=== PATIENT | male | born 1945 | race Caucasian/White ===

== ENCOUNTER 2021-09-18 07:06 | Inpatient (IN) | payer OTHER, MEDICARE, SELFPAY ==
[2021-09-18] VITALS (14 sets, daily range): BP systolic 170–215; BP diastolic 63–142; PULSE 72–117; RESP 13–23; TEMP 36.1–36.8; O2SAT 91–95; BMI 28.1
--- NOTE | 2021-09-18 07:08 | XRR_ITS ---
PROCEDURE INFORMATION: Exam: XR Chest Exam date and time: 09/18/2021 7:08 AM Age: 75 years old Clinical indication: Patient HX: Generalized weakness, possible stroke. Weakness started Thursday then woke up this morning with limited movement on the RT side. ; Additional info: CVA TECHNIQUE: Imaging protocol: XR of the chest. Views: 1 view. COMPARISON: CR Chest 2 views* [id number] 03/07/2016 5:48 AM FINDINGS: Lungs: No consolidation. Pleural spaces: Unremarkable. No pleural effusion. No pneumothorax. Heart/Mediastinum: No significant cardiomegaly. Bones/joints: No acute finding. XR/XR chest 1V portable [id number] IMPRESSION: No acute cardiopulmonary finding.
--- NOTE | 2021-09-18 07:09 | CTR_ITS ---
PROCEDURE INFORMATION: Exam: CT Head Without Contrast Exam date and time: 09/18/2021 7:09 AM Age: 75 years old Clinical indication: Weakness, extremity; Left; Additional info: Symptoms of acute stroke; Right side weakness TECHNIQUE: Imaging protocol: Computed tomography of the head without contrast. Radiation optimization: All CT scans at this facility use at least one of these dose optimization techniques: automated exposure control; mA and/or kV adjustment per patient size (includes targeted exams where dose is matched to clinical indication); or iterative reconstruction. Other technique: STROKE PROTOCOL was implemented. COMPARISON: CT head wo con* [id number] 03/05/2016 3:33 PM RADIATION DOSE METRICS: Total DLP (mGy-cm): 1785.54 FINDINGS: Brain: There is no acute intracranial hemorrhage. There is lucency in the cerebral white matter, likely microvascular disease although non-specific. No evidence of mass. There is no mass effect or midline shift. Arriola white differentiation is intact. There are no extra-axial fluid collections. Cerebral ventricles: The ventricles and sulci are enlarged, consistent with volume loss / atrophy. No hydrocephalus. Paranasal sinuses: Partially visualized left maxillary sinus retention cyst or polyp. Amount of mucosal thickening in bilateral ethmoid air cells. No air-fluid levels. Mastoid air cells: No significant mastoid effusion. Vasculature: There is vascular calcification. Bones/joints: No acute fracture. Soft tissues: Unremarkable as visualized. CT/CT head wo con* [id number] IMPRESSION: 1. No evidence of acute intracranial abnormality. No evidence of acute infarction, hemorrhage, or mass. 2. Atrophy and microvascular disease. ASSESSMENT: ASPECTS ([place] Stroke Program Early CT Score) is 10.
--- NOTE | 2021-09-18 07:09 | ECG_ITS ---
[facility] Test Date: 2021-09-18 Pat Name: Mukund Mitchell Department: Room: Gender: Male Regulated Program Manager: : 1945 Requested By: Brian Juan Order Number: [id number] Jorge MD: Nash Cavanaugh M.D. Measurements Intervals [place] Rate: 102 P: 70 DC: 164 QRS: 85 QRSD: 144 T: 50 QT: 376 QTc: 492 Interpretive Statements SINUS TACHYCARDIA POSSIBLE LEFT ATRIAL ENLARGEMENT [-0.1mV P-WAVE IN V1/V2] RIGHT BUNDLE BRANCH BLOCK [120+ ms QRS DURATION, UPRIGHT V1, 40+ ms S IN I/aVL/V4/V5/V6] Compared to ECG 03/05/2016 14:42:01 Sinus rhythm no longer present Electronically Signed On 09-18-2021 16:00:33 SMOKE AND FLAME SPECIALIST by Nash Cavanaugh M.D. [id number]
--- NOTE | 2021-09-18 07:14 | PM.SAN ---
Stroke Alert Activation ED Arrival Date: 09/18/21 ED Arrival Time: 07:06 ED Physican at Bedside: 07:10 Other Last Known Well Infomation: Approximately 48 hours ago Stroke Alert Activated by: Dr. Mckoy Stroke Alert Activation Date: 09/18/21 Stroke Alert Activation Time: 07:01 Critical Care Time Critical Care Time: 30 - 74 mins Additional information about critical care time: 35 A&P Assessment and plan (1) CVA (cerebral vascular accident): Admission Status: Acute Plan Admission Coding Level of Care Code Acute Machine Preservative Filler for Sarahg Fwd Diagnoses CVA (cerebral vascular accident) I63.9
[2021-09-18 07:19] LABS: Basophils # 0.1 10^3/uL (0.0-0.1); Basophils % 0.7 %; Eosinophils # 0.4 10^3/uL (0.0-0.8); Eosinophils % 3.3 %; Hematocrit 49.5 % (42.0-52.0); Hemoglobin 16.7 g/dL (11.7-16.6); Lymphocytes # 1.8 10^3/uL (0.8-4.8); Lymphocytes % 16.1 %; Mean Corpuscular HGB Conc 33.7 g/dL (30.0-36.0); Mean Corpuscular Hemoglobin 30.9 pg (28.0-34.0); Mean Corpuscular Volume 91.5 fl (80-94); Mean Platelet Volume 9.7 fL (7.4-10.4); Monocytes # 0.8 10^3/uL (0.2-0.9); Monocytes % 7.7 %; Neutrophils # 7.86 10^3/uL (1.8-7.7); Neutrophils % 71.8 %; Nucleated Red Blood Cells % 0 %; Platelet Count 378 10^3/cmm (130-400); Red Blood Count 5.41 10^6/uL (4.1-5.3); White Blood Count 10.9 10^3/uL (4.0-10.0)
--- NOTE | 2021-09-18 07:19 | ED_ITS ---
HPI - Neuro Symptoms/Deficit General: Chief Complaint: Weakness Stated Complaint: generalized weakness/ possible stroke Time Seen by Provider: 09/18/21 07:08 Source: patient and EMS Mode of arrival: EMS Limitations: no limitations History of Present Illness: Patient reports onset of weakness to his right upper and lower extremity Thursday morning. This is approximately 48 hours ago. Patient states he is unable to use his right hand and right lower leg this morning. He has been unable to take his medication for the past 24 hours due to poor account services manager. Onset (ago): hour(s) (48) Location: right arm and right leg Severity: severe Quality: weak Relieving factors: none Exacerbating factors: none Context: gradual onset Associated symptoms: Deny chest pain, cough, diaphoresis, headache(s), nausea or vomiting Review of Systems Const: Denies: diaphoresis Eyes: Denies: change in vision ENMT: Denies: throat pain Card: Denies: chest pain Resp: Denies: dyspnea or wheezing GI: Denies: abdominal pain, nausea or vomiting : Denies: flank pain Musc: Denies: neck pain or back pain Skin/Breast: Denies: rash or pruritus Neuro: Reports: weakness in extremities; Denies: headache(s) Psych: Denies: anxiety Avinash/Lymph: Denies: enlarged lymph nodes PFS ED PFSH: Medical History Hypertension Social History Smoking and tobacco status: former smoker Supplemental [facility] Information: pt goes to [facility] for care NIH stroke score NIHSS: Level Of Consciousness - 1a: 0 Level Of Consciousness Questions - 1b: Both Correct Level Of Consciousness Commands - 1c: Both Correct Best Gaze - 2: Normal Visual [place] - 3: No Visual Loss Facial Palsy - 4: Minor Paralysis Motor Arm Right - 5: Effort Against [place] Motor Arm Left - 5: No Drift Motor Leg Right - 6: Effort Against [place] Motor Leg Left - 6: No Drift Limb Ataxia - 7: Present In One Limb Sensory - 8: Normal Best Language - 9: No Aphasia Dysarthia - 10: Mild/Moderate Dysarthia Extinction And Inattention - 11: 0 Score: Total Score: 7 Physical Exam Const: COMMON NORMALS: no acute distress, alert and well nourished GENERAL APPEARANCE: cooperative HENMT: COMMON NORMALS: normocephalic and atraumatic HEAD & SCALP: normocephalic and atraumatic FACE & SINUS: normal facial exam Eye: COMMON NORMALS: EOMs intact bilaterally Neck/C-Spine: COMMON NORMALS: full ROM, no lymphadenopathy, supple and no meningeal signs GENERAL: Yes normal visual inspection Lymph: LYMPHATIC: no lymphadenopathy noted Chest: COMMONS NORMALS: normal inspection of the chest and normal palpation of entire chest wall CHEST: No Ecchymosis present and No rash Resp: COMMON NORMALS: normal respiratory effort, No retractions and clear to auscultation bilaterally EFFORT & INSPECTION: No respiratory distress AUSCULTATION: clear to auscultation bilaterally Cardio: COMMON NORMALS: regular rate, regular rhythm and Peripheral pulses 2+ throughout JUGULAR VENOUS DISTENTION: no JVD RATE: regular rate RHYTHM: regular rhythm PERIPHERAL PULSES: Peripheral pulses 2+ throughout GI: COMMON NORMALS: Normal to inspection, nondistended, normoactive bowel sounds present and non-tender : COMMON NORMALS: Yes no CVA tenderness BLADDER/KIDNEY EXAM: Yes no CVA tenderness Back/Pelvis: COMMON NORMALS: no CVA tenderness Extremity: COMMON NORMALS: normal to inspection, full ROM and capillary refill normal Neuro: SANTI COMA SCALE: document GCS findings (Incorrect on year. He states it is 1992) Keller coma scale eye opening: Spontaneous Keller coma scale verbal response: Confused Santi coma scale motor response: Obey commands Keller coma scale total score: 14 SENSORIUM/ORIENTATION: Yes alert MENINGEAL SIGNS: Yes no meningeal signs CRANIAL NERVES: Yes CN VII (facial) (Slight paralysis of left face, sparing forehead) DEEP TENDON REFLEXES: Right patellar reflex intensity grade: 2+ and Left patellar reflex intensity grade: 2+ OTHER: Speech slightly slurred; 3 out of 5 strength in the right upper and lower extremity. Normal strength in the left upper and lower extremity. Follows commands well. Psych: COMMON NORMALS: mental status grossly normal and Normal thought process present THOUGHT PROCESS: Normal thought process present Skin: COMMON NORMALS: no rashes or lesions noted and no wounds GENERAL SKIN EXAM: no rashes or lesions noted Course Vital Signs: Vital signs: Vital Signs Temperature 97.0 F L 09/18/21 07:26 Pulse Rate 77 09/18/21 09:15 Respiratory Rate 20 H 09/18/21 09:15 Blood Pressure 179/104 09/18/21 09:15 Pulse Oximetry 95 09/18/21 09:15 MDM - Neuro Symptoms/Deficit Medical Decision Making Likely CVA. CT of the brain shows no acute CVA. Lab Data I reviewed the patient's lab results. : 09/18/21 06:55 09/18/21 06:55 Radiology Impressions Chest X-Ray 09/18/21 07:08 IMPRESSION: No acute cardiopulmonary finding. Head CT 09/18/21 07:09 IMPRESSION: 1. No evidence of acute intracranial abnormality. No evidence of acute infarction, hemorrhage, or mass. 2. Atrophy and microvascular disease. ASSESSMENT: ASPECTS ([place] Stroke Program Early CT Score) is 10. Laboratory Results WBC 10.9 10^3/uL (4.0-10.0) H 09/18/21 06:55 RBC 5.41 10^6/uL (4.1-5.3) H 09/18/21 06:55 Hgb 16.7 g/dL (11.7-16.6) H 09/18/21 06:55 Hct 49.5 % (42.0-52.0) 09/18/21 06:55 MCV 91.5 fl (80-94) 09/18/21 06:55 MCH 30.9 pg (28.0-34.0) 09/18/21 06:55 MCHC 33.7 g/dL (30.0-36.0) 09/18/21 06:55 RDW 12.0 % (12.1-15.1) L 09/18/21 06:55 Plt Count 378 10^3/cmm (130-400) 09/18/21 06:55 MPV 9.7 fL (7.4-10.4) 09/18/21 06:55 Neut % (Auto) 71.8 % 09/18/21 06:55 Lymph % (Auto) 16.1 % 09/18/21 06:55 Callahan % (Auto) 7.7 % 09/18/21 06:55 Eos % (Auto) 3.3 % 09/18/21 06:55 Baso % (Auto) 0.7 % 09/18/21 06:55 Neut # (Auto) 7.86 10^3/uL (1.8-7.7) H 09/18/21 06:55 Lymph # (Auto) 1.8 10^3/uL (0.8-4.8) 09/18/21 06:55 Callahan # (Auto) 0.8 10^3/uL (0.2-0.9) 09/18/21 06:55 Eos # (Auto) 0.4 10^3/uL (0.0-0.8) 09/18/21 06:55 Baso # (Auto) 0.1 10^3/uL (0.0-0.1) 09/18/21 06:55 Nucleated RBC % (auto) 0 % 09/18/21 06:55 Nucleated RBCs # 0.0 /100WBC 09/18/21 06:55 PT 13.30 SECONDS (12.1-14.9) 09/18/21 06:55 INR 0.98 (0.8-1.2) 09/18/21 06:55 APTT 38.3 SECONDS (23.9-36.7) H 09/18/21 06:55 Sodium 132 mmol/L (136-145) L 09/18/21 06:55 Potassium 4.2 mmol/L (3.5-5.1) 09/18/21 06:55 Chloride 95 mmol/L (98-107) L 09/18/21 06:55 Carbon Dioxide 20 mmol/L (22-29) L 09/18/21 06:55 Anion Gap 21.2 (5-19) H 09/18/21 06:55 BUN 9 mg/dL (8-23) 09/18/21 06:55 Creatinine 0.7 mg/dL (0.7-1.2) 09/18/21 06:55 GFR Calculation Not Reportable 09/18/21 06:55 Glucose 140 mg/dL (65-115) H 09/18/21 06:55 POC Glucose 97 mg/dL (70-110) 09/18/21 08:11 Calculated Osmolality 275 mOsm/kg (285-295) L 09/18/21 06:55 Calcium 8.9 mg/dL (8.5-10.5) 09/18/21 06:55 Total Bilirubin 0.8 mg/dL (0.15-1.2) 09/18/21 06:55 AST 20 U/L (0-40) 09/18/21 06:55 ALT 16 U/L (0-41) 09/18/21 06:55 Alkaline Phosphatase 75 IU/L (40-130) 09/18/21 06:55 Total Protein 7.3 g/dL (6.6-8.7) 09/18/21 06:55 Albumin 4.8 g/dL (3.5-5.2) 09/18/21 06:55 Globulin 2.5 g/dL (1.3-4.6) 09/18/21 06:[address] Head: Radiologist's impression: Exam: CT Head Without Contrast Exam date and time: 09/18/2021 7:09 AM Age: 75 years old Clinical indication: Weakness, extremity; Left; Additional info: Symptoms of acute stroke; Right side weakness TECHNIQUE: Imaging protocol: Computed tomography of the head without contrast. Radiation optimization: All CT scans at this facility use at least one of these dose optimization techniques: automated exposure control; mA and/or kV adjustment per patient size (includes targeted exams where dose is matched to clinical indication); or iterative reconstruction. Other technique: STROKE PROTOCOL was implemented. COMPARISON: CT head wo con* [id number] 03/05/2016 3:33 PM RADIATION DOSE METRICS: Total DLP (mGy-cm): 1785.54 FINDINGS: Brain: There is no acute intracranial hemorrhage. There is lucency in the cerebral white matter, likely microvascular disease although non-specific. No evidence of mass. There is no mass effect or midline shift. Arriola white differentiation is intact. There are no extra-axial fluid collections. Cerebral ventricles: The ventricles and sulci are enlarged, consistent with volume loss / atrophy. No hydrocephalus. Paranasal sinuses: Partially visualized left maxillary sinus retention cyst or polyp. Amount of mucosal thickening in bilateral ethmoid air cells. No air-fluid levels. Mastoid air cells:? No significant mastoid effusion. Vasculature: There is vascular calcification. Bones/joints:? No acute fracture. Soft tissues: Unremarkable as visualized. CT/CT head wo con* [id number] IMPRESSION: 1. No evidence of acute intracranial abnormality. No evidence of acute infarction, hemorrhage, or mass. 2. Atrophy and microvascular disease. ? ASSESSMENT: ASPECTS ([place] Stroke Program Early CT Score) is 10. ? Dictated By: Ashley Huang MD Signed By: Ashley Huang MD Signed Date/Time: 09/18/21 0741 CXR: I personally reviewed and interpreted this imaging study as follows: My impression: Nothing acute seen. Radiologist's impression: Exam: XR Chest Exam date and time: 09/18/2021 7:08 AM Age: 75 years old Clinical indication: Patient HX: Generalized weakness, possible stroke. Weakness started Thursday then woke up this morning with limited movement on the RT side. ; Additional info: CVA TECHNIQUE: Imaging protocol: XR of the chest. Views: 1 view. COMPARISON: CR Chest 2 views* [id number] 03/07/2016 5:48 AM FINDINGS: Lungs: No consolidation. Pleural spaces: Unremarkable. No pleural effusion. No pneumothorax. Heart/Mediastinum: No significant cardiomegaly. Bones/joints: No acute finding. XR/XR chest 1V portable [id number] IMPRESSION: No acute cardiopulmonary finding. ? Dictated By: Ashley Huang MD Signed By: Ashley Huang MD Signed Date/Time: 09/18/21 0746 EKG Data EKG 1: I personally reviewed and interpreted this EKG as follows: EKG interpretation date: 09/18/21 EKG interpretation time: 08:06 Prior EKG tracings: not available for review Interpretation: EKG shows sinus tachycardia with heart rate of 102. Right axis, right bundle branch block, normal P waves, normal OH interval, normal QT interval. Nonspecific ST-T changes throughout. Critical Care Time Critical Care Time: Critical Care Time: Yes Total Critical Care Time: 35 Attestation: Be admittedcva care; CT angiogram of the head and neck were canceled due to iodine allergies. 0753: Discussed with hospitalist Dr. Ferrer. To med telemetry floor. 0757: Patient was able to drink a cup of water without any difficulty. He passed his dysphagia screen. Discharge Plan Discharge Patient Disposition: Admitted As Inpatient Clinical Impression: CVA (cerebral vascular accident), Hypertensive urgency Condition: Stable Coding Level of Care Code ED Fpga Engineer for g Fwd Exam Comprehensive
[2021-09-18 07:31] LABS: INR 0.98 (0.8-1.2)
[2021-09-18 07:32] LABS: Partial Thromboplastin Time 38.3 SECONDS (23.9-36.7)
[2021-09-18 07:36] LABS: Alanine Aminotransferase 16 U/L (0-41); Albumin Level 4.8 g/dL (3.5-5.2); Alkaline Phosphatase 75 IU/L (40-130); Anion Gap 21.2 (5-19); Aspartate Amino Transferase 20 U/L (0-40); Blood Urea Nitrogen 9 mg/dL (8-23); Calcium 8.9 mg/dL (8.5-10.5); Carbon Dioxide 20 mmol/L (22-29); Chloride 95 mmol/L (98-107); Globulin 2.5 g/dL (1.3-4.6); Glucose 140 mg/dL (65-115); Osmolality Calculated 275 mOsm/kg (285-295); Potassium 4.2 mmol/L (3.5-5.1); Sodium 132 mmol/L (136-145); Total Bilirubin 0.8 mg/dL (0.15-1.2); Total Protein 7.3 g/dL (6.6-8.7)
[2021-09-18] MEDS: aspirin 325 mg Tablet PO (08:04)
[2021-09-18 08:14] LABS: Glucose Point of Care 97 mg/dL (70-110)
[2021-09-18] MEDS: labetalol 5 mg/mL SDV 20mL 10 MG IVP (08:46)
--- NOTE | 2021-09-18 09:21 | PC.PHAR ---
pt states he takes care of his own medications-medications entered are meds that [place] [facility] and what the pt states he takes
--- NOTE | 2021-09-18 09:42 | P.HP_ITS ---
Providers/Chief Complaint Primary Care Provider: Ginette Ji MD Chief Complaint: generalized weakness/ possible stroke History of Present Illness Mukund Mitchell is a 75 year old male who presents today for a 3 days history of right upper and lower extremity weakness. Patient explains that he got up out of his recliner and was unable to stand due to weakness and fell to the floor. He explains that he was on the ground for about 30 minutes before a friend came and helped him him up. He was unable to explain why he presented to the emergency room today and not on Thursday. Denies any nausea vomiting and fevers or chills. Denies any dysphagia or dysarthria. He has not had any drooling. Denies any syncopal episodes, denies any chest pain or heart palpitations. No prior history of CVA. He received aspirin and a dose of labetalol in the emergency department. Review of Systems 2 General: Reports: 10 or more systems reviewed and unremarkable except in HPI and below Const: Denies: fever(s) or chills Eyes: Denies: change in vision or blurry vision ENMT: Denies: odynophagia (or dysphagia) Card: Denies: chest pain, palpitations or irregular heart rhythm Resp: Denies: dyspnea GI: Denies: abdominal pain, nausea or vomiting : Denies: flank pain, difficulty urinating, urinary frequency, oliguria or hematuria Musc: Reports: extremity pain and muscle weakness Skin/Breast: Denies: rash Neuro: Reports: weakness in extremities; Denies: headache(s) Psych: Denies: change in appetite Endo: Denies: polyuria or flushing Avinash/Lymph: Denies: easy bruising All/Imm: Denies: urticaria or facial swelling Medications/Allergies Home Medications Medication Instructions Recorded Confirmed Last Taken Type ketoconazole 2 % shampoo 1 applic TOPICAL .2 x weekly #120 04/30/21 09/18/21 Unknown Rx ml amlodipine 5 mg tablet 5 mg PO DAILY 09/18/21 09/18/21 Unknown History clobetasol 0.05 % topical ointment See Rx Instructions .ROUTE .COMPLEX 09/18/21 09/18/21 Unknown History finasteride 5 mg tablet (Proscar) 5 mg PO BEDTIME 09/18/21 09/18/21 Unknown History ipratropium 20 mcg-albuterol 100 1 puff INHALATION QID PRN 09/18/21 09/18/21 Unknown History mcg/actuation mist for inhalation ketoconazole 2 % topical cream See Rx Instructions .ROUTE .COMPLEX 09/18/21 09/18/21 Unknown History lisinopril 40 mg tablet 40 mg PO DAILY 09/18/21 09/18/21 Unknown History multivitamin 1 tab PO DAILY 09/18/21 09/18/21 Unknown History tamsulosin 0.4 mg capsule (Flomax) 0.4 mg PO BEDTIME 09/18/21 09/18/21 Unknown History triamcinolone acetonide 0.1 % See Rx Instructions .ROUTE .COMPLEX 09/18/21 09/18/21 Unknown History topical ointment Allergies Allergy/AdvReac Type Severity Reaction Status Date / Time Iodine and Iodide Containing Allergy hives Verified 05/07/21 08:22 Produc PFSH Acute PFSH: Medical History (Updated 09/18/21 @ 10:07 by Philip Ferrer MD) BPH (benign prostatic hyperplasia) COPD (chronic obstructive pulmonary disease) Gastric ulcer Hypertension Surgical History (Updated 09/18/21 @ 09:51 by Philip Ferrer MD) History of abdominal surgery Family History (Updated 09/18/21 @ 09:56 by Philip Ferrer MD) Other CAD (coronary artery disease) Social History (Updated 09/18/21 @ 09:55 by Philip Ferrer MD) Smoking and tobacco status: former smoker Alcohol intake: current Alcohol intake frequency: 3 or more drinks per day Vitals/I&O/Wt Last Vital Signs Temp 97.0 F L 09/18/21 07:26 Pulse 77 09/18/21 09:15 Resp 20 H 09/18/21 09:15 BP 179/104 09/18/21 09:15 Pulse Ox 95 09/18/21 09:15 Weight last 48 hrs Weight 81.647 kg Physical Exam Narrative: General: Vela, male lying in bed with no apparent distress. Mild retractions HEENT: Normocephalic atraumatic pupils equal round reactive to light. Neck supple nontender no lymphadenopathy no thyromegaly. Cardiac: Tachycardic, regular rhythm. S1-S2 present. No murmurs rubs or gallops. Peripheral pulses 1+. Respiratory: End expiratory wheezing in all lobes. No rales or rhonchi. Abdomen is soft nontender positive bowel sounds. No obvious organomegaly. Midline scar is noted. exam is deferred Extremities no cyanosis clubbing or edema, cap refill brisk Skin no rash Neuro: Right hemiparesis, dense noted. No facial droop. Bedside swallow exam without any obvious aspiration. Data : 09/18/21 06:55 09/18/21 06:55 Other Labs: INR is normal LFTs normal Chest x-ray COPD changes, calcification aortic notch. 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 Bedside swallow done by me no obvious aspiration Speech therapy physical therapy and Occupational Therapy consultations Initiate aspirin and Plavix It has been 48 hours since his event. At this point can restart some of his blood pressure medicine at low-dose, as permissive hypertension timeframe has past Echocardiogram, carotid duplex Telemetry Initiate high potency statin Hydration Status: Acute Qualifiers: CVA mechanism: unspecified Qualified Code(s): I63.9 - Cerebral infar ction, unspecified (2) Hyperglycemia: Check hemoglobin A1c Status: Acute (3) Hypertension: Initiate his lisinopril at 20 mg daily Status: Acute (4) COPD (chronic obstructive pulmonary disease): DuoNeb every 6 hours, budesonide Status: Acute Plan History of alcohol use. Initiate thiamine. Monitor for withdrawal. He reports he has not drank since Thursday. Tobacco dependency. Encourage abstinence Multiple other medical problems as outlined in past medical history Full code Lovenox for DVT prophylaxis Attestations Medical Necessity Statement*: Will require greater than 2 midnight stay secondary to CVA with dense right hemiparesis unable to care for himself at home. Coding Level of Care Code Acute Gambling Box Person for [facility] Diagnoses CVA (cerebral vascular accident) I63.9 CVA mechanism: unspecified Hyperglycemia R73.9 Hypertension I10 COPD (chronic obstructive pulmonary disease) J44.9
[2021-09-18 10:39] LABS: Creatine Phosphokinase 104 U/L (39-308); Estmated Average Glucose 100; Hemoglobin A1C 5.1 % (4.0-6.0); Thyroid Stimulating Hormone 1.53 uIU/mL (0.27-4.20)
--- NOTE | 2021-09-18 13:27 | PC.NURSE ---
REPORT TO OCTOBER,RN
--- NOTE | 2021-09-18 14:04 | PC.NURSE ---
Patient arrived to floor via cart. Patient is AAOx4, flaccid to right side, and no c/o pain. Skin on back has some abrasions and some blanchable redness to the coccyx area. IV intact and patent.
[2021-09-18] MEDS: ipratropium-albuterol 3 mL Neb INHALATION ×2 (15:20→20:30)
[2021-09-18] MEDS: lisinopril 20 mg Tablet PO (16:01)
[2021-09-18] MEDS: sodium chloride 0.9% 1,000 ML 75 ML IV (16:10)
[2021-09-18] MEDS: enoxaparin 40 mg/0.4 mL Syringe SUBCUT (16:38)
[2021-09-18 17:49] LABS: Glucose Point of Care 113 mg/dL (70-110)
[2021-09-18] MEDS: atorvastatin 40 mg Tablet PO (20:21)
[2021-09-18] MEDS: finasteride 5 mg Tablet PO (20:21)
[2021-09-18] MEDS: tamsulosin 0.4 mg Capsule PO (20:21)
[2021-09-18] MEDS: budesonide 0.5 mg/2 mL Neb INHALATION (20:29)
[2021-09-18 20:35] LABS: Glucose Point of Care 105 mg/dL (70-110)
[2021-09-19] VITALS (14 sets, daily range): BP systolic 165–179; BP diastolic 74–83; PULSE 70–109; RESP 14–26; TEMP 36.7–37; O2SAT 91–95
--- NOTE | 2021-09-19 02:12 | PC.NURSE ---
0015 Awake, restless. nectar thick water given per pt request. Tolerates well.
--- NOTE | 2021-09-19 02:14 | PC.NURSE ---
0200 Awake in bed. COnfused at times. Thinks whiteboard is a tv and wants it turned off. Explained and reoriented pt.
[2021-09-19] MEDS: ipratropium-albuterol 3 mL Neb INHALATION ×4 (02:32→19:59)
--- NOTE | 2021-09-19 02:55 | PC.NURSE ---
0240 US tech at bedside. Pt refuses bedside tests as ordered.
[2021-09-19] MEDS: sodium chloride 0.9% 1,000 ML 75 ML IV (05:06)
[2021-09-19 06:06] LABS: Chol HDL Ratio 2.64 mg/dL (1.0-5.00); Cholesterol 161 mg/dL (0-200); HDL Cholesterol 61 mg/dL (60-100); LDL Cholesterol Calculated 84 mg/dL (50-129); LDL HDL Ratio 1.38 RATIO (0.00-3.22); Triglycerides 79 mg/dL (0-150)
[2021-09-19 06:19] LABS: Glucose Point of Care 113 mg/dL (70-110)
--- NOTE | 2021-09-19 07:48 | P.PN_ITS ---
Documented by User: JAKI Mckeon STDCOREY 09/19/21 08:56 Subjective Subjective: Mukund Mitchell is a 75 year old male being followed for ischemic cerebrovascular accident. Patient explains that he slept good. Was unable to explain if he had received any physical or occupational therapy, states that he is just too stiff. Denies most symptoms of alcohol withdrawal including palpitation, tachycardia, and nausea/vomitting. Endorses decreased appetite. Patient was wondering when he would return to his apartment, explained that he would need a high level of care due to right hemiparesis. Vitals/I&O/Wt Last Vital Signs Temp 98.4 F 09/19/21 07:01 Pulse 91 09/19/21 07:01 Resp 17 09/19/21 07:01 BP 179/83 09/19/21 07:01 Pulse Ox 91 09/19/21 07:01 09/18/21 09/19/21 09/19/21 22:59 06:59 14:59 Intake Total 40 / 40 970 / 1010 Output Total 160 / 160 Balance 40 / 40 810 / 850 Weight last 48 hrs Weight 81.647 kg Physical Exam Narrative: General: Elderly apparing male in no apparent distress. HEENT: Normocephalic, atraumatic. Pupils equal and round. Oropharynx dry. Cardiac: Regular rate and rhythm. S1 S2 present. No murmurs rubs or gallops. Peripheral pulse 2+. Respiratory: Air entry equal bilaterally. Diffuse wheezing present, rhonchi present. No rales. Abdominal retractions present but improved, denies any dyspnea. GI: Soft, nontender, nondistended, normoactive, no organomegaly. Extremities: No cyanosis, clubbing, or edema. Neuro: Dense right sided hemiparesis. Parasthesias on right upper and lower extremity. No facial droop present. Sensation intact over bilateral face. Data : 09/18/21 06:55 09/18/21 06:55 Other Labs: Lipid panel normal A&P Assessment and plan (1) CVA (cerebral vascular accident): Left hemispheric CVA, MCA territory manifested by dense right hemiparesis. Continue speech, physical, and occupational therapy Repeat swallow studies before progression of diet Decrease rate of IV fluids due to adequate liquid oral itnake Continue aspirin and Plavix Continue lisinopril for bloop pressure control Echocardiogram, carotid duplex still pending Continue Telemetry Continue lipitor Hydration Status: Acute Qualifiers: CVA mechanism: unspecified Qualified Code(s): I63.9 - Cerebral infarction, unspecified (2) Hyperglycemia: Hemoglobin A1c normal at 5.1 Status: Acute (3) Hypertension: Continue lisinopril at 20 mg daily Status: Acute (4) COPD (chronic obstructive pulmonary disease): Continue DuoNeb every 6 hours Continue budesonide BID Status: Acute Plan History of alcohol use, continue thiamine. Continue to monitor for withdrawal, no symptoms present at this time. He reports he has not drank since Thursday. Tobacco dependency, encourage abstinence Multiple other medical problems as outlined in past medical history Full code Lovenox for DVT prophylaxis Coding Level of Care Code Acute Mental Retardation Nurse for Chg Fwd Diagnoses CVA (cerebral vascular accident) I63.9 CVA mechanism: unspecified Hyperglycemia R73.9 Hypertension I10 COPD (chronic obstructive pulmonary disease) J44.9 Documented by User: Philip Ferrer MD 09/19/21 09:07 Subjective Subjective: Mukund Mitchell is a 75 year old male being followed for ischemic cerebrovascular accident. Patient explains that he slept good. Was unable to explain if he had received any physical or occupational therapy, states that he is just too stiff. Denies most symptoms of alcohol withdrawal including palpitation, tachycardia, and nausea/vomitting. Endorses decreased appetite. Patient was wondering when he would return to his apartment, explained that he would need a high level of care due to right hemiparesis. Agree with above. I interviewed the patient as well. Medications: Reviewed: Yes Physical Exam Narrative: General: Elderly apparing male in no apparent distress. HEENT: Normocephalic, atraumatic. Pupils equal and round. Oropharynx dry. Cardiac: Regular rate and rhythm. S1 S2 present. No murmurs rubs or gallops. Peripheral pulse 2+. Respiratory: Air entry equal bilaterally. Diffuse wheezing present, rhonchi present. No rales. Abdominal retractions present but improved, denies any dyspnea. GI: Soft, nontender, nondistended, normoactive, no organomegaly. Extremities: No cyanosis, clubbing, or edema. Neuro: Dense right sided hemiparesis. Parasthesias on right upper and lower extremity. No facial droop present. Sensation intact over bilateral face. No changes from above, I examined the patient as well. Data : 09/18/21 06:55 09/18/21 06:55 A&P Assessment and plan (1) CVA (cerebral vascular accident): Left hemispheric CVA, MCA territory manifested by dense right hemiparesis. Continue speech, physical, and occupational therapy Repeat swallow studies before progression of diet Decrease rate of IV fluids due to adequate liquid oral itnake Continue aspirin and Plavix Continue lisinopril for bloop pressure control Echocardiogram, carotid duplex still pending. For some reason order got canceled and I have reordered. Continue Telemetry Continue lipitor Hydration Status: Acute Qualifiers: CVA mechanism: unspecified Qualified Code(s): I63.9 - Cerebral infarction, unspecified (2) Hyperglycemia: Status: Acute (3) Hypertension: Increase lisinopril to his home dose of 40 mg daily Status: Acute (4) COPD (chronic obstructive pulmonary disease): Status: Acute Attestations Medical Necessity Statement*: Needs continued hospitalization for close monitoring following severe stroke, and will need skilled care on discharge. Coding Level of Care Code Acute Mental Retardation Nurse for Chg Fwd Diagnoses CVA (cerebral vascular accident) I63.9 CVA mechanism: unspecified Hyperglycemia R73.9 Hypertension I10 COPD (chronic obstructive pulmonary disease) J44.9
[2021-09-19] MEDS: budesonide 0.5 mg/2 mL Neb INHALATION ×2 (08:03→19:55)
[2021-09-19] MEDS: aspirin 81 mg EC Tablet PO (08:23)
[2021-09-19] MEDS: clopidogrel 75 mg Tablet PO (08:23)
[2021-09-19] MEDS: lisinopril 20 mg Tablet PO (08:23)
[2021-09-19] MEDS: thiamine 100 mg Tablet PO (08:23)
--- NOTE | 2021-09-19 09:03 | USCV_ITS ---
Mukund Mitchell Age: 75 Gender: M : 1945 Exam Date: 09/19/2021 09:15 Ordering Phys: Philip Ferrer MD Technologist: ILSA [place] [facility]: cva Risk Factors: Previous Vascular Surgery: Right Brachial BP: / Left Brachial BP: / Right Left Velocity (cm/s) Spectral Plaque Velocity (cm/s) Spectral Plaque Syst/Diast Broadening Syst/Diast Broadening 155.50/11.00 Prox CCA 92.60 / 18.70 108.10/15.40 Mid CCA 113.60/ 8.80 92.10/ 15.80 Distal CCA 92.60 / 11.00 95.90/ 8.80 Prox ICA 62.80 / 17.60 109.20/9.90 Mid ICA 70.60 / 13.50 72.80/ 17.60 Distal ICA 83.30 / 13.50 87.10 ECA 131.20 0.70 ICA/CCA 0.73 Not Vertebral Antegrade Visualized / cm/s 93.70/ 24.30 cm/s Tri Subclavian Tri 68.40 178.8 0 CONCLUSIONS Right ICA stenosis <50%. Mild calcified atheromatous plaque right carotid bulb/ICA. Left ICA stenosis <50%. Mild calcified atheromatous plaque left carotid bulb/ICA. Right vertebral artery not visualized. Normal antegrade Doppler flow noted in the left vertebral artery. Casper Bryson MD (Electronically Signed) Final Date: 19 September 2021 16:02 S
--- NOTE | 2021-09-19 09:03 | USCV_ITS ---
Paula Mukund Age: 75 Gender: M : 1945 Exam Date: 09/19/2021 13:04 Ordering Phys: Philip Ferrer MD Technologist: Semaj Galvin Exam Location: [facility] [place] Indication: cva BP: 179 / 83 HR: Rhythm: Sinus Technical Quality: MEASUREMENTS (Male / Female) Normal Values FINDINGS Left Ventricle Right Ventricle Right Atrium Left Atrium Mitral Valve Aortic Valve Tricuspid Valve Pulmonic Valve Pericardium Aorta CONCLUSIONS Technically very limited quality echocardiogram. Cardiac structures are not well visualized LV systolic function can not be assessed accurately but grossly appears to be normal. Valvular structures are not visualized For better assessment, consider echo with contrast Comparison with prior echocardiogram is not possible because of poor ultrasonic windows Nash Cavanaugh MD (Electronically Signed) Final Date: 21 September 2021 23:23 S
--- NOTE | 2021-09-19 11:10 | PC.CHAP ---
Pastoral Care Encounter/Spiritual Assessment Type of Contact [] Declined grab setter visit [] Patient/Family/Request visit [] Outpatient visit [] Follow-up visit [] Physician referral [] Code/Alert [x] Routine visit [] Staff referral [] Actively dying [] Patient sleeping [] Family support [] [] Out of room [] Palliative care [] [x] Receiving care in room [] Pre-surgical visit [] Trauma [] Long length of stay [] ICU visit [] Other: Relational/Emotional Strength [x] Patient feels connected with others/family/visitors/staff [] Distress [] Loneliness/isolation [] Abandonment Spirituality of Patient [x] Person of Crys [] Attends Muslim of their Crys [x] Believes in Prayer [] Reads Bible or Advent materials [] There are Spiritual issues to be addressed Bottom Cementer Interventions [x] Prayer [x] Active listening [x] Non-anxious presence [x] Spiritual/emotional support [] Crisis/trauma care [x] Spiritual counseling [] Bereavement support [] Provided bereavement packet [] Provided Bible/devotional materials [] Provided toy/stuffed animal, coloring book to patient or family member [] Provided Communion [] Anointing/[place] [] Salvation [x] Completed spiritual assessment [] Other: Impact on Illness or Injury [] Angry [] Fearful [x] Anxious [] Often cries [] Exhaustion [] Unable to work [] Unable to attend taoist [] Unable to walk/stand [] Unable to read [] Unable to drive [] Unable to eat/drink [] Unable to sleep [] Unable to be with family [] Patient intubated [] Other: Summary Seniur Low sodom waiting on doctor report not sure about what needs to be donr will get to go hpme soon has a good attitude Time spent with patient 10 mins
[2021-09-19 11:55] LABS: Glucose Point of Care 421 mg/dL (70-110)
[2021-09-19 12:21] LABS: Glucose Point of Care 121 mg/dL (70-110)
[2021-09-19] MEDS: enoxaparin 40 mg/0.4 mL Syringe SUBCUT (16:09)
[2021-09-19 17:09] LABS: Glucose Point of Care 138 mg/dL (70-110)
[2021-09-19] MEDS: nicotine 21 mg Patch 1 PATCH TRANSDERMA (17:56)
[2021-09-19 20:35] LABS: Glucose Point of Care 106 mg/dL (70-110)
[2021-09-19] MEDS: atorvastatin 40 mg Tablet PO (20:39)
[2021-09-19] MEDS: finasteride 5 mg Tablet PO (20:39)
[2021-09-19] MEDS: tamsulosin 0.4 mg Capsule PO (20:39)
[2021-09-20] VITALS (18 sets, daily range): BP systolic 139–192; BP diastolic 74–118; PULSE 80–113; RESP 16–24; TEMP 36.3–37.1; O2SAT 92–97
[2021-09-20] MEDS: ipratropium-albuterol 3 mL Neb INHALATION ×3 (03:03→21:15)
--- NOTE | 2021-09-20 04:14 | PC.NURSE ---
0400 Pt awake in bed. Pulled IV out and telemetry off. Attempted to restart IV and replace tlemetry. Pt says No, I don't want it. Explained rationale for these items. Pt says he doesn't care.
--- NOTE | 2021-09-20 04:48 | PC.NURSE ---
0415 Pt refused lab to draw blood.
[2021-09-20 06:40] LABS: Glucose Point of Care 115 mg/dL (70-110)
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
--- NOTE | 2021-09-20 07:25 | PC.NURSE ---
0715 MAnual BP 198/116. Pt aggitated. Voicemail left for Dr. Carissa dey BP. Oncoming nurse aware Sherri EMANUEL.
[2021-09-20] MEDS: aspirin 81 mg EC Tablet PO (08:11)
[2021-09-20] MEDS: amlodipine 5 mg Tablet PO (08:11)
[2021-09-20] MEDS: thiamine 100 mg Tablet PO (08:11)
[2021-09-20] MEDS: clopidogrel 75 mg Tablet PO (08:11)
[2021-09-20] MEDS: lisinopril 20 mg Tablet 40 MG PO (08:12)
[2021-09-20] MEDS: nicotine 21 mg Patch 1 PATCH TRANSDERMA (08:12)
[2021-09-20 11:00] LABS: Glucose Point of Care 104 mg/dL (70-110)
[2021-09-20 11:38] LABS: Basophils # 0.1 10^3/uL (0.0-0.1); Basophils % 0.8 %; Eosinophils # 0.2 10^3/uL (0.0-0.8); Eosinophils % 1.9 %; Hemoglobin 16.1 g/dL (11.7-16.6); Lymphocytes # 1.3 10^3/uL (0.8-4.8); Lymphocytes % 12.3 %; Mean Corpuscular HGB Conc 32.2 g/dL (30.0-36.0); Mean Corpuscular Hemoglobin 30.8 pg (28.0-34.0); Mean Corpuscular Volume 95.6 fl (80-94); Mean Platelet Volume 9.4 fL (7.4-10.4); Monocytes # 0.8 10^3/uL (0.2-0.9); Neutrophils # 8.27 10^3/uL (1.8-7.7); Neutrophils % 77.6 %; Nucleated Red Blood Cells % 0 %; Platelet Count 320 10^3/cmm (130-400); Red Blood Count 5.23 10^6/uL (4.1-5.3); Red Cell Distribution Width 11.9 % (12.1-15.1); White Blood Count 10.7 10^3/uL (4.0-10.0)
[2021-09-20 11:55] LABS: Blood Urea Nitrogen 17 mg/dL (8-23); Calcium 9.5 mg/dL (8.5-10.5); Carbon Dioxide 21 mmol/L (22-29); Chloride 98 mmol/L (98-107); Glucose 106 mg/dL (65-115); Osmolality Calculated 278 mOsm/kg (285-295); Sodium 133 mmol/L (136-145)
[2021-09-20] MEDS: hyDRALAzine 20 mg/mL INJ 1 mL 10 MG IVP ×2 (13:54→21:10)
[2021-09-20] MEDS: LORazepam 2 mg/mL INJ 1 mL 0.5 MG IVP (14:49)
[2021-09-20] MEDS: enoxaparin 40 mg/0.4 mL Syringe SUBCUT (15:08)
[2021-09-20 16:48] LABS: Glucose Point of Care 111 mg/dL (70-110)
[2021-09-20 20:56] LABS: Glucose Point of Care 84 mg/dL (70-110)
[2021-09-20] MEDS: budesonide 0.5 mg/2 mL Neb INHALATION (21:15)
[2021-09-20] MEDS: tamsulosin 0.4 mg Capsule PO (21:37)
[2021-09-20] MEDS: finasteride 5 mg Tablet PO (21:37)
[2021-09-20] MEDS: atorvastatin 40 mg Tablet PO (21:37)
[2021-09-21] VITALS (13 sets, daily range): BP systolic 131–176; BP diastolic 70–98; PULSE 53–112; RESP 16–20; TEMP 36.2–36.8; O2SAT 93–97
[2021-09-21] MEDS: ipratropium-albuterol 3 mL Neb INHALATION ×4 (03:03→20:29)
[2021-09-21 06:27] LABS: Glucose Point of Care 104 mg/dL (70-110)
[2021-09-21] MEDS: budesonide 0.5 mg/2 mL Neb INHALATION ×2 (08:15→20:29)
[2021-09-21] MEDS: nicotine 21 mg Patch 1 PATCH TRANSDERMA (09:20)
[2021-09-21] MEDS: clopidogrel 75 mg Tablet PO (09:20)
[2021-09-21] MEDS: aspirin 81 mg EC Tablet PO (09:20)
[2021-09-21] MEDS: lisinopril 20 mg Tablet 40 MG PO (09:20)
[2021-09-21] MEDS: thiamine 100 mg Tablet PO (09:20)
[2021-09-21] MEDS: amlodipine 5 mg Tablet 10 MG PO (09:20)
[2021-09-21 11:29] LABS: Glucose Point of Care 126 mg/dL (70-110)
--- NOTE | 2021-09-21 13:39 | PC.SOCIAL ---
IMM UPDATED IMM dated and initialed and copy given to patient
--- NOTE | 2021-09-21 14:12 | P.PN_ITS ---
Subjective Subjective: Patient was seen and examined this morning much more cooperative, blood pressure is well controlled. He was resting comfortably in bed, no agitation today. His other vitals and labs have been reviewed. Medications: Reviewed: Yes Medication Review Details: Generic Name Dose Route Start Last Admin Trade Name Freq PRN Reason Stop Dose Admin Albuterol/Ipratrop ium 3 ml 09/19/21 15:00 09/21/21 08:15 Ipratropium-Albu terol 3 Ml Neb INHALATION 3 ml Q6H.RESPIRATORY S CH Administration Amlodipine Besylat e 10 mg 09/21/21 09:00 09/21/21 09:20 Amlodipine 5 Mg Tablet PO 10 mg DAILY ROBERT Administration Aspirin 81 mg 09/19/21 09:00 09/21/21 09:20 Aspirin 81 Mg Ec Tablet PO 81 mg DAILY ROBERT Administration Atorvastatin Calci um 40 mg 09/18/21 21:00 09/20/21 21:37 Atorvastatin 40 Mg Tablet PO 40 mg BEDTIME ROBERT Administration Budesonide 0.5 mg 09/19/21 20:00 09/21/21 08:15 Budesonide 0.5 M g/2 Ml Neb INHALATION 0.5 mg BID.RESPIRATORY S CH Administration Clopidogrel Bisulf ate 75 mg 09/19/21 09:00 09/21/21 09:20 Clopidogrel 75 M g Tablet PO 75 mg DAILY ROBERT Administration Enoxaparin Sodium 40 mg 09/18/21 14:30 09/20/21 15:08 Enoxaparin 40 Mg /0.4 Ml Syringe SUBCUT 40 mg Q24H ROBERT Administration Finasteride 5 mg 09/18/21 21:00 09/20/21 21:37 Finasteride 5 Mg Tablet PO 5 mg BEDTIME ROBERT Administration Hydralazine HCl 10 mg 09/20/21 12:14 09/20/21 21:10 Hydralazine 20 M g/Ml Inj 1 Ml IVP 10 mg Q4H PRN Administration HYPERTENSION Lisinopril 40 mg 09/20/21 09:00 09/21/21 09:20 Lisinopril 20 Mg Tablet PO 40 mg DAILY ROBERT Administration Lorazepam 0.5 mg 09/20/21 12:59 09/20/21 14:49 Lorazepam 2 Mg/M l Inj 1 Ml IVP 0.5 mg Q4H PRN Administration ANXIETY Nicotine 1 patch 09/19/21 18:00 09/21/21 09:20 Nicotine 21 Mg P atch TRANSDERMA 1 patch DAILY ROBERT Administration Tamsulosin HCl 0.4 mg 09/18/21 21:00 09/20/21 21:37 Tamsulosin 0.4 M g Capsule PO 0.4 mg BEDTIME ROBERT Administration Thiamine Mononitra te 100 mg 09/18/21 14:03 09/21/21 09:20 Thiamine 100 Mg Tablet PO 100 mg DAILY ROBERT Administration Vitals/I&O/Wt Last Vital Signs Temp 98 F 09/21/21 11:01 Pulse 75 09/21/21 11:01 Resp 16 09/21/21 11:01 BP 157/70 09/21/21 11:01 Pulse Ox 96 09/21/21 11:01 09/20/21 09/21/21 09/21/21 22:59 06:59 14:59 Intake Total 200 / 725 120 / 845 120 / 120 Output Total 300 / 300 Balance -100 / 425 120 / 545 120 / 120 Physical Exam Const: COMMON NORMALS: patient oriented x3 HENMT: COMMON NORMALS: normocephalic and atraumatic HEAD & SCALP: normocephalic and atraumatic Resp: COMMON NORMALS: normal respiratory effort, No retractions, No use of accessory muscles and clear to auscultation bilaterally EFFORT & INSPECTION: Yes symmetric chest movement AUSCULTATION: clear to auscultation bilaterally Cardio: COMMON NORMALS: regular rate, regular rhythm, S1 normal heart sound present, S2 normal heart sound present, No gallops present (Cardio), No murmurs present (Cardio), No rub (Cardio) and Peripheral pulses 2+ throughout RATE: regular rate RHYTHM: regular rhythm HEART SOUNDS: S1 normal heart sound present and S2 normal heart sound present PERIPHERAL PULSES: Peripheral pulses 2+ throughout GI: COMMON NORMALS: Normal to inspection, nondistended, normoactive bowel sounds present, Soft to palpation, non-tender, No hepatosplenomegaly present and no masses AUSCULTATION: Yes normoactive bowel sounds PALPATION: Yes Soft to palpation and Yes No hepatosplenomegaly present RECTAL EXAM: Yes deferred Extremity: COMMON NORMALS: no clubbing, cyanosis or edema and no pedal edema Neuro: COMMON NORMALS: patient oriented x3 Data : 09/20/21 11:26 09/20/21 11:26 A&P Assessment and plan (1) CVA (cerebral vascular accident): Left hemispheric CVA, MCA territory manifested by dense right hemiparesis. Carotid ultrasound demonstrates some plaquing but less than 50% CT head without contrast no acute intracranial pathology 2D echo: PT / OT SPL evaluation done On aspirin and Plavix, Lipitor Continue amlodipine and lisinopril b/p is fairly well controlled Continue Telemetry. Can follow-up with neurology as an outpatient, and decision whether MRI or repeat scan is needed at that time. Status: Acute Qualifiers: CVA mechanism: unspecified Qualified Code(s): I63.9 - Cerebral infarction, unspecified (2) Hyperglycemia: Hemoglobin A1c normal at 5.1 Status: Acute (3) Hypertension: On lisinopril and amlodipine Currently blood pressure is at goal Status: Acute (4) COPD (chronic obstructive pulmonary disease): Continue DuoNeb every 6 hours Continue budesonide BID Status: Acute Plan History of alcohol use, continue thiamine. Continue to monitor for withdrawal, no symptoms present at this time. He reports he has not drank since Thursday. Tobacco dependency, encourage abstinence Multiple other medical problems as outlined in past medical history Full code Lovenox for DVT prophylaxis Attestations Medical Necessity Statement*: Patient is currently awaiting placement to [facility], medically ready for discharge. Coding Level of Care Code Acute Safety Counselor for g Fwd Exam Detailed Diagnoses CVA (cerebral vascular accident) I63.9 CVA mechanism: unspecified Hyperglycemia R73.9 Hypertension I10 COPD (chronic obstructive pulmonary disease) J44.9
[2021-09-21] MEDS: enoxaparin 40 mg/0.4 mL Syringe SUBCUT (14:14)
[2021-09-21 16:51] LABS: Glucose Point of Care 124 mg/dL (70-110)
[2021-09-21 20:39] LABS: Glucose Point of Care 150 mg/dL (70-110)
[2021-09-21] MEDS: tamsulosin 0.4 mg Capsule PO (20:53)
[2021-09-21] MEDS: atorvastatin 40 mg Tablet PO (20:53)
[2021-09-21] MEDS: finasteride 5 mg Tablet PO (20:53)
[2021-09-21] MEDS: sennosides 8.6 mg Tablet 17.2 MG PO (21:19)
[2021-09-22] VITALS (11 sets, daily range): BP systolic 133–151; BP diastolic 70–86; PULSE 90–113; RESP 17–24; TEMP 36.6–36.9; O2SAT 90–97
[2021-09-22] MEDS: ipratropium-albuterol 3 mL Neb INHALATION ×4 (03:18→20:06)
[2021-09-22 06:14] LABS: Basophils # 0.1 10^3/uL (0.0-0.1); Basophils % 0.8 %; Eosinophils # 0.5 10^3/uL (0.0-0.8); Eosinophils % 4.5 %; Hematocrit 49.8 % (42.0-52.0); Hemoglobin 16.2 g/dL (11.7-16.6); Lymphocytes # 1.3 10^3/uL (0.8-4.8); Mean Corpuscular HGB Conc 32.5 g/dL (30.0-36.0); Mean Corpuscular Volume 95.4 fl (80-94); Monocytes % 9.4 %; Neutrophils % 72.9 %; Nucleated Red Blood Cells % 0 %; Platelet Count 320 10^3/cmm (130-400); Red Blood Count 5.22 10^6/uL (4.1-5.3); White Blood Count 10.7 10^3/uL (4.0-10.0)
[2021-09-22 06:20] LABS: Glucose Point of Care 111 mg/dL (70-110)
[2021-09-22 06:40] LABS: Blood Urea Nitrogen 28 mg/dL (8-23); Calcium 8.5 mg/dL (8.5-10.5); Carbon Dioxide 21 mmol/L (22-29); Chloride 101 mmol/L (98-107); Glucose 105 mg/dL (65-115); Osmolality Calculated 288 mOsm/kg (285-295); Sodium 136 mmol/L (136-145)
[2021-09-22] MEDS: budesonide 0.5 mg/2 mL Neb INHALATION ×2 (08:01→20:06)
[2021-09-22] MEDS: nicotine 21 mg Patch 1 PATCH TRANSDERMA (09:43)
[2021-09-22] MEDS: aspirin 81 mg EC Tablet PO (09:44)
[2021-09-22] MEDS: thiamine 100 mg Tablet PO (09:44)
[2021-09-22] MEDS: amlodipine 5 mg Tablet 10 MG PO (09:44)
[2021-09-22] MEDS: lisinopril 20 mg Tablet 40 MG PO (09:44)
[2021-09-22] MEDS: clopidogrel 75 mg Tablet PO (09:44)
--- NOTE | 2021-09-22 10:32 | P.PN_ITS ---
Subjective Subjective: Patient was seen and examined this morning, slightly agitated and confused today. Likely hospital-acquired delirium. Medications: Reviewed: Yes Medication Review Details: Generic Name Dose Route Start Last Admin Trade Name Freq PRN Reason Stop Dose Admin Albuterol/Ipratrop ium 3 ml 09/19/21 15:00 09/21/21 08:15 Ipratropium-Albu terol 3 Ml Neb INHALATION 3 ml Q6H.RESPIRATORY S CH Administration Amlodipine Besylat e 10 mg 09/21/21 09:00 09/21/21 09:20 Amlodipine 5 Mg Tablet PO 10 mg DAILY ROBERT Administration Aspirin 81 mg 09/19/21 09:00 09/21/21 09:20 Aspirin 81 Mg Ec Tablet PO 81 mg DAILY ROBERT Administration Atorvastatin Calci um 40 mg 09/18/21 21:00 09/20/21 21:37 Atorvastatin 40 Mg Tablet PO 40 mg BEDTIME ROBERT Administration Budesonide 0.5 mg 09/19/21 20:00 09/21/21 08:15 Budesonide 0.5 M g/2 Ml Neb INHALATION 0.5 mg BID.RESPIRATORY S CH Administration Clopidogrel Bisulf ate 75 mg 09/19/21 09:00 09/21/21 09:20 Clopidogrel 75 M g Tablet PO 75 mg DAILY ROBERT Administration Enoxaparin Sodium 40 mg 09/18/21 14:30 09/20/21 15:08 Enoxaparin 40 Mg /0.4 Ml Syringe SUBCUT 40 mg Q24H ROBERT Administration Finasteride 5 mg 09/18/21 21:00 09/20/21 21:37 Finasteride 5 Mg Tablet PO 5 mg BEDTIME ROBERT Administration Hydralazine HCl 10 mg 09/20/21 12:14 09/20/21 21:10 Hydralazine 20 M g/Ml Inj 1 Ml IVP 10 mg Q4H PRN Administration HYPERTENSION Lisinopril 40 mg 09/20/21 09:00 09/21/21 09:20 Lisinopril 20 Mg Tablet PO 40 mg DAILY ROBERT Administration Lorazepam 0.5 mg 09/20/21 12:59 09/20/21 14:49 Lorazepam 2 Mg/M l Inj 1 Ml IVP 0.5 mg Q4H PRN Administration ANXIETY Nicotine 1 patch 09/19/21 18:00 09/21/21 09:20 Nicotine 21 Mg P atch TRANSDERMA 1 patch DAILY ROBERT Administration Tamsulosin HCl 0.4 mg 09/18/21 21:00 09/20/21 21:37 Tamsulosin 0.4 M g Capsule PO 0.4 mg BEDTIME ROBERT Administration Thiamine Mononitra te 100 mg 09/18/21 14:03 09/21/21 09:20 Thiamine 100 Mg Tablet PO 100 mg DAILY ROBERT Administration Vitals/I&O/Wt Last Vital Signs Temp 98.4 F 09/22/21 04:00 Pulse 105 H 09/22/21 08:01 Resp 24 H 09/22/21 08:01 BP 151/81 09/22/21 07:17 Pulse Ox 90 09/22/21 08:01 09/21/21 09/22/21 09/22/21 22:59 06:59 14:59 Intake Total 360 / 480 120 / 120 Balance 360 / 480 120 / 120 Physical Exam HENMT: COMMON NORMALS: normocephalic and atraumatic HEAD & SCALP: normocephalic and atraumatic Resp: COMMON NORMALS: clear to auscultation bilaterally EFFORT & INSPECTION: Yes symmetric chest movement AUSCULTATION: clear to auscultation bilaterally Cardio: COMMON NORMALS: regular rate, regular rhythm, S1 normal heart sound present, S2 normal heart sound present, No gallops present (Cardio), No murmurs present (Cardio), No rub (Cardio) and Peripheral pulses 2+ throughout RATE: regular rate RHYTHM: regular rhythm HEART SOUNDS: S1 normal heart sound present and S2 normal heart sound present PERIPHERAL PULSES: Peripheral pulses 2+ throughout GI: COMMON NORMALS: Normal to inspection, nondistended, normoactive bowel sounds present, Soft to palpation, non-tender, No hepatosplenomegaly present and no masses AUSCULTATION: Yes normoactive bowel sounds PALPATION: Yes Soft to palpation and Yes No hepatosplenomegaly present RECTAL EXAM: Yes deferred Extremity: COMMON NORMALS: no clubbing, cyanosis or edema and no pedal edema Data : 09/24/21 04:15 09/24/21 04:15 A&P Assessment and plan (1) CVA (cerebral vascular accident): Left hemispheric CVA, MCA territory manifested by dense right hemiparesis. CV carotid duplex BI: Right ICA stenosis <50%. Mild calcified atheromatous p laque ?right carotid bulb/ICA.?Left ICA stenosis <50%. Mild calcified atheromatous plaque left ?carotid bulb/ICA. ?Right vertebral artery not visualized. CT head without contrast no acute intracranial pathology 2D echo: Technically difficult study: LV systolic function can not be assessed accurately but grossly appears to be normal. Valvular structures are not visualized. For better assessment, consider echo with contrast PT / OT SPL evaluation done On aspirin and Plavix, Lipitor Continue amlodipine and lisinopril b/p is fairly well controlled Continue Telemetry. follow-up with neurology as an outpatient Can Get MRI as an outpatient if needed Status: Acute Qualifiers: CVA mechanism: unspecified Qualified Code(s): I63.9 - Cerebral infarction, unspecified (2) Hyperglycemia: Hemoglobin A1c normal at 5.1 Status: Acute (3) Hypertension: On lisinopril and amlodipine Currently blood pressure is at goal Status: Acute (4) COPD (chronic obstructive pulmonary disease): Continue DuoNeb every 6 hours Continue budesonide BID Status: Acute Plan History of alcohol use, continue thiamine. Continue to monitor for withdrawal, no symptoms present at this time. He reports he has not drank since Thursday. Tobacco dependency, encourage abstinence Multiple other medical problems as outlined in past medical history Full code Lovenox for DVT prophylaxis Attestations Medical Necessity Statement*: Patient is currently awaiting placement. Time Spent in Patient Care: Greater than 35 minutes (>than 50% of time spent in counselling and/or direct pt care on unit) . 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
[2021-09-22 11:11] LABS: Glucose Point of Care 109 mg/dL (70-110)
[2021-09-22] MEDS: enoxaparin 40 mg/0.4 mL Syringe SUBCUT (13:35)
[2021-09-22 17:04] LABS: Glucose Point of Care 106 mg/dL (70-110)
[2021-09-22] MEDS: finasteride 5 mg Tablet PO (20:38)
[2021-09-22] MEDS: tamsulosin 0.4 mg Capsule PO (20:38)
[2021-09-22] MEDS: atorvastatin 40 mg Tablet PO (20:38)
[2021-09-22 21:02] LABS: Glucose Point of Care 121 mg/dL (70-110)
[2021-09-23] VITALS (15 sets, daily range): BP systolic 119–136; BP diastolic 64–82; PULSE 67–104; RESP 13–20; TEMP 36.3–37.3; O2SAT 91–95
[2021-09-23] MEDS: ipratropium-albuterol 3 mL Neb INHALATION ×4 (03:28→20:56)
[2021-09-23 04:56] LABS: Basophils # 0.1 10^3/uL (0.0-0.1); Basophils % 0.6 %; Eosinophils # 0.4 10^3/uL (0.0-0.8); Eosinophils % 2.6 %; Hematocrit 46.9 % (42.0-52.0); Hemoglobin 15.2 g/dL (11.7-16.6); Lymphocytes # 1.1 10^3/uL (0.8-4.8); Lymphocytes % 7.7 %; Mean Corpuscular HGB Conc 32.4 g/dL (30.0-36.0); Mean Corpuscular Hemoglobin 30.5 pg (28.0-34.0); Mean Corpuscular Volume 94.2 fl (80-94); Mean Platelet Volume 9.6 fL (7.4-10.4); Neutrophils # 11.49 10^3/uL (1.8-7.7); Neutrophils % 81.6 %; Nucleated Red Blood Cells % 0 %; Platelet Count 330 10^3/cmm (130-400); Red Blood Count 4.98 10^6/uL (4.1-5.3); Red Cell Distribution Width 11.9 % (12.1-15.1); White Blood Count 14.1 10^3/uL (4.0-10.0)
[2021-09-23 05:11] LABS: Anion Gap 18.9 (5-19); Blood Urea Nitrogen 34 mg/dL (8-23); Calcium 8.4 mg/dL (8.5-10.5); Carbon Dioxide 21 mmol/L (22-29); Chloride 100 mmol/L (98-107); Glucose 111 mg/dL (65-115); Osmolality Calculated 290 mOsm/kg (285-295); Potassium 3.9 mmol/L (3.5-5.1); Sodium 136 mmol/L (136-145)
[2021-09-23 06:33] LABS: Glucose Point of Care 119 mg/dL (70-110)
[2021-09-23] MEDS: budesonide 0.5 mg/2 mL Neb INHALATION (08:20)
[2021-09-23] MEDS: thiamine 100 mg Tablet PO (10:39)
[2021-09-23] MEDS: nicotine 21 mg Patch 1 PATCH TRANSDERMA (10:39)
[2021-09-23] MEDS: lisinopril 20 mg Tablet 40 MG PO (10:39)
[2021-09-23] MEDS: clopidogrel 75 mg Tablet PO (10:39)
[2021-09-23] MEDS: amlodipine 5 mg Tablet 10 MG PO (10:39)
[2021-09-23] MEDS: aspirin 81 mg EC Tablet PO (10:39)
--- NOTE | 2021-09-23 10:57 | PC.SOCIAL ---
IMM Update pg 2 of IMM updated reviewed via telephone w/ Han. Attempted to wake patient to give IMM and he would only open his eyes and would not wake up fully. Copy of IMM left in room for patient. Copy in chart updated.
[2021-09-23 11:37] LABS: Glucose Point of Care 108 mg/dL (70-110)
[2021-09-23] MEDS: enoxaparin 40 mg/0.4 mL Syringe SUBCUT (14:11)
--- NOTE | 2021-09-23 15:54 | PM.PN ---
Subjective Subjective: Hospital course, labs appreciated. On examination patient working with occupational therapy. He is trying to eat pudding. Family at bedside. Patient denies any acute complaints. Vitals/I&O/Wt Last Vital Signs Temp 98.6 F 09/23/21 12:00 Pulse 100 09/23/21 14:42 Resp 16 09/23/21 14:42 BP 129/74 09/23/21 12:00 Pulse Ox 93 09/23/21 14:42 09/23/21 09/23/21 09/23/21 06:59 14:59 22:59 Output Total 425 / 425 Balance -425 / 175 Physical Exam Narrative: General: No acute distress, AO x3 HEENT: Normocephalic, atraumatic. Neck supple, nontender, no lympadenopathy, no thyromegaly. Cardiac: Regular rate and rhythm. S1 S2 present. No murmurs rubs or gallops noted. Peripheral pulse 2+. Respiratory: Wheezing noted in all lobes, intermittent rhonchi. No rales. GI: Soft, nontender, nondistended, normoactive bowel sounds, no organomegaly appreciated. Neuro: Dense right sided hemiparesis. No facial droop. Speech continues to be muffled. Urinary Catheter Management: Fan: Cath Placed During This Visit: yes Reason for Continuing Indwelling Catheter: Acute Urinary Retention or Obstruction Urinary Catheter Date of Insertion: 09/22/21 Urinary Catheter Time of Insertion: 23:00 Data : 09/23/21 04:18 09/23/21 04:18 A&P Assessment and plan (1) CVA (cerebral vascular accident): Appreciate physical therapy, speech therapy evaluation. Continue with aspirin and Plavix, Lipitor. Continue amlodipine and lisinopril. Blood pressure fairly well controlled. Continue Telemetry. Will need to follow-up with neurology as an outpatient within 2 weeks on discharge. Status: Acute Qualifiers: CVA mechanism: unspecified Qualified Code(s): I63.9 - Cerebral infarction, unspecified (2) Hyperglycemia: Hemoglobin A1c normal at 5.1 Status: Acute (3) Hypertension: On lisinopril and amlodipine Blood pressure goal of less than 140/90 mmHg. Status: Acute (4) COPD (chronic obstructive pulmonary disease): We will switch to as needed nebulizers Status: Acute Plan History of alcohol use, continue thiamine. Continue to monitor for withdrawal, no symptoms present at this time. He reports he has not drank since Thursday. Tobacco dependency, encourage abstinence Multiple other medical problems as outlined in past medical history Full code Lovenox for DVT prophylaxis Pepcid for PUD prophylaxis Attestations Medical Necessity Statement*: Requires further hospitalization for further evaluation management of post CVA care while safe discharge planning is sought. 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
[2021-09-23] MEDS: famotidine 20 mg Tablet PO (17:51)
[2021-09-23 17:52] LABS: Glucose Point of Care 91 mg/dL (70-110)
[2021-09-23] MEDS: tamsulosin 0.4 mg Capsule PO (20:09)
[2021-09-23] MEDS: atorvastatin 40 mg Tablet PO (20:09)
[2021-09-23] MEDS: finasteride 5 mg Tablet PO (20:09)
[2021-09-23 20:55] LABS: Glucose Point of Care 120 mg/dL (70-110)
[2021-09-23 23:50] LABS: Blood Urine 3+ (Negative); Glucose Urine UA Norm (Normal); Ketones Urine Negative (Negative); Nitrate Urine Negative (Negative); Protein Urine 1+ (Negative); Specific Gravity, Urine 1.025 (1.005-1.030); Urine Appearance Cloudy (CLEAR); Urine Color Yellow (Yellow); pH Urine 5 (5-7)
[2021-09-23 23:51] LABS: Add Urine Microscopic? YES; Bilirubin Urine 1+ (Negative); Leukocyte Esterase Urine 2+ (Negative); Urobilinogen Urine 1 mg/dL (Negative)
[2021-09-23 23:52] LABS: Add Urine Culture? Yes; Bacteria Urine 3+ /hpf; Mucus Urine 2+ /hpf; RBC Urine >100 /hpf (0-2); WBC Urine >100 /hpf (0-5)
[2021-09-24] VITALS (9 sets, daily range): BP systolic 113–166; BP diastolic 65–80; PULSE 83–109; RESP 13–18; TEMP 36.4–37.2; O2SAT 93–96
[2021-09-24 05:05] LABS: Basophils # 0.1 10^3/uL (0.0-0.1); Basophils % 0.9 %; Eosinophils # 0.6 10^3/uL (0.0-0.8); Eosinophils % 4.8 %; Hematocrit 47.4 % (42.0-52.0); Hemoglobin 15.3 g/dL (11.7-16.6); Lymphocytes # 1.4 10^3/uL (0.8-4.8); Lymphocytes % 12.4 %; Mean Corpuscular HGB Conc 32.3 g/dL (30.0-36.0); Mean Corpuscular Hemoglobin 31.7 pg (28.0-34.0); Mean Corpuscular Volume 98.1 fl (80-94); Monocytes % 8.6 %; Neutrophils # 8.32 10^3/uL (1.8-7.7); Neutrophils % 72.8 %; Nucleated Red Blood Cells % 0 %; Platelet Count 334 10^3/cmm (130-400); Red Blood Count 4.83 10^6/uL (4.1-5.3); White Blood Count 11.4 10^3/uL (4.0-10.0)
[2021-09-24 05:25] LABS: Blood Urea Nitrogen 33 mg/dL (8-23); Calcium 8.9 mg/dL (8.5-10.5); Carbon Dioxide 20 mmol/L (22-29); Chloride 100 mmol/L (98-107); Glucose 101 mg/dL (65-115); Osmolality Calculated 285 mOsm/kg (285-295); Sodium 134 mmol/L (136-145)
[2021-09-24 05:35] LABS: Anion Gap 17.9 (5-19); Potassium 3.9 mmol/L (3.5-5.1)
[2021-09-24 06:33] LABS: Glucose Point of Care 110 mg/dL (70-110)
[2021-09-24] MEDS: lisinopril 20 mg Tablet 40 MG PO (10:26)
[2021-09-24] MEDS: aspirin 81 mg EC Tablet PO (10:27)
[2021-09-24] MEDS: famotidine 20 mg Tablet PO (10:27)
[2021-09-24] MEDS: amlodipine 5 mg Tablet 10 MG PO (10:27)
[2021-09-24] MEDS: nicotine 21 mg Patch 1 PATCH TRANSDERMA (10:27)
[2021-09-24] MEDS: clopidogrel 75 mg Tablet PO (10:27)
[2021-09-24] MEDS: thiamine 100 mg Tablet PO (10:27)
[2021-09-24 11:17] LABS: Glucose Point of Care 98 mg/dL (70-110)
[2021-09-24] MEDS: cefTRIAXone 1,000 MG in sodium chloride 0.9% (plus) 50 ML 100 MG IV (12:59)
[2021-09-24] MEDS: enoxaparin 40 mg/0.4 mL Syringe SUBCUT (14:04)
--- NOTE | 2021-09-24 14:15 | PM.PN ---
Subjective Subjective: No acute events overnight. Seen with friends at bedside. Patient slightly confused today but able to have complete conversation. Alert oriented to self and place. Denied physical therapy today but agreeable to do later in the day again. Vitals/I&O/Wt Last Vital Signs Temp 97.6 F 09/24/21 11:34 Pulse 109 H 09/24/21 11:34 Resp 13 09/24/21 11:34 BP 122/80 09/24/21 11:34 Pulse Ox 94 09/24/21 11:34 09/23/21 09/24/21 09/24/21 22:59 06:59 14:59 Intake Total 120 / 120 320 / 440 50 / 50 Output Total 300 / 300 Balance 120 / 120 20 / 140 50 / 50 Physical Exam Narrative: General: No acute distress, AO x3 HEENT: Normocephalic, atraumatic. Neck supple, nontender, no lympadenopathy, no thyromegaly. Cardiac: Regular rate and rhythm. S1 S2 present. No murmurs rubs or gallops noted. Peripheral pulse 2+. Respiratory: Wheezing noted in all lobes, intermittent rhonchi. No rales. GI: Soft, nontender, nondistended, normoactive bowel sounds, no organomegaly appreciated. Neuro: Dense right sided hemiparesis. No facial droop. Speech continues to be muffled. Urinary Catheter Management: Fan: Cath Placed During This Visit: yes Reason for Continuing Indwelling Catheter: Acute Urinary Retention or Obstruction Urinary Catheter Date of Insertion: 09/22/21 Urinary Catheter Time of Insertion: 23:00 Data : 09/24/21 04:15 09/24/21 04:15 A&P Assessment and plan (1) CVA (cerebral vascular accident): Appreciate physical therapy, speech therapy evaluation. Continue with aspirin and Plavix, Lipitor. Continue amlodipine and lisinopril. Blood pressure fairly well controlled. Continue Telemetry. Will need to follow-up with neurology as an outpatient within 2 weeks on discharge. Status: Acute Qualifiers: CVA mechanism: unspecified Qualified Code(s): I63.9 - Cerebral infarction, unspecified (2) UTI (urinary tract infection): UA consistent with positive leuk esterase, 3+ bacteria. Unable to confirm with patient regarding dysuria. Fan in place. Start patient on IV ceftriaxone. Follow-up urine culture. DC Fan catheter. Status: Acute (3) Hyperglycemia: Hemoglobin A1c normal at 5.1 Status: Acute (4) Hypertension: On lisinopril and amlodipine Currently blood pressure is at goal Status: Acute (5) COPD (chronic obstructive pulmonary disease): Continue DuoNeb every 6 hours Continue budesonide BID Status: Acute Plan History of alcohol use, continue thiamine. Continue to monitor for withdrawal, no symptoms present at this time. He reports he has not drank since Thursday. Tobacco dependency, encourage abstinence Multiple other medical problems as outlined in past medical history Full code Lovenox for DVT prophylaxis Discharge planning: Given patient social discord, significant stroke and confusion secondary to stroke patient would need placement to SNF. Since agreeable. Awaiting safe discharge planning. Attestations Medical Necessity Statement*: Requires further hospitalization for management of CVA, UTI leading to mild AMS while safe discharge planning to SNF is sought. 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
[2021-09-24 17:04] LABS: Glucose Point of Care 82 mg/dL (70-110)
[2021-09-24] MEDS: tamsulosin 0.4 mg Capsule PO (20:33)
[2021-09-24] MEDS: atorvastatin 40 mg Tablet PO (20:33)
[2021-09-24] MEDS: finasteride 5 mg Tablet PO (20:33)
[2021-09-24 21:27] LABS: Glucose Point of Care 97 mg/dL (70-110)
[2021-09-25] VITALS (8 sets, daily range): BP systolic 101–136; BP diastolic 58–84; PULSE 84–104; RESP 16–22; TEMP 36.4–36.6; O2SAT 93–97
[2021-09-25 06:32] LABS: Glucose Point of Care 100 mg/dL (70-110)
[2021-09-25] MEDS: aspirin 81 mg EC Tablet PO (09:56)
[2021-09-25] MEDS: thiamine 100 mg Tablet PO (09:56)
[2021-09-25] MEDS: amlodipine 5 mg Tablet 10 MG PO (09:56)
[2021-09-25] MEDS: lisinopril 20 mg Tablet 40 MG PO (09:56)
[2021-09-25] MEDS: clopidogrel 75 mg Tablet PO (09:56)
[2021-09-25] MEDS: famotidine 20 mg Tablet PO ×2 (09:56→17:22)
[2021-09-25] MEDS: nicotine 21 mg Patch 1 PATCH TRANSDERMA (09:57)
--- NOTE | 2021-09-25 10:50 | PC.SOCIAL ---
IMM Update pg 2 of IMM updated and reviewed w/ patient. Copy provided and copy in chart updated.
[2021-09-25] MEDS: cefTRIAXone 1,000 MG in sodium chloride 0.9% (plus) 50 ML 100 MG IV (12:14)
[2021-09-25 12:42] LABS: Glucose Point of Care 119 mg/dL (70-110)
--- NOTE | 2021-09-25 13:51 | PM.PN ---
Subjective Subjective: No acute events overnight. Denies any nausea, vomiting, headache. On examination laying comfortably in bed, resting. Wakes up to verbal cue. States feeling tired and sleepy today. Has remained hemodynamically stable and afebrile. Worked with physical therapy today. Fan catheter was removed last 24 hours. Overnight patient was found to have mild urinary retention for which straight catheterization was done and 230 cc of urine was evacuated. Patient does not have Fan for now. Vitals/I&O/Wt Last Vital Signs Temp 97.6 F 09/25/21 12:00 Pulse 102 H 09/25/21 12:00 Resp 22 H 09/25/21 12:00 BP 117/77 09/25/21 12:00 Pulse Ox 97 09/25/21 12:00 09/24/21 09/25/21 09/25/21 22:59 06:59 14:59 Intake Total 950 / 1000 240 / 240 Output Total 0 / 0 Balance 950 / 1000 240 / 240 Physical Exam Narrative: General: No acute distress, AO x3, slurred speech unchanged from before HEENT: Normocephalic, atraumatic. Neck supple, nontender, no lympadenopathy, no thyromegaly. Cardiac: Regular rate and rhythm. S1 S2 present. No murmurs rubs or gallops noted. Peripheral pulse 2+. Respiratory: Wheezing noted in all lobes, intermittent rhonchi. No rales. GI: Soft, nontender, nondistended, normoactive bowel sounds, no organomegaly appreciated. Neuro: Dense right sided hemiparesis. No facial droop. Speech continues to be muffled. Urinary Catheter Management: Fan: Cath Placed During This Visit: yes Reason for Continuing Indwelling Catheter: Acute Urinary Retention or Obstruction Urinary Catheter Date of Insertion: 09/22/21 Urinary Catheter Time of Insertion: 23:00 Data : 09/24/21 04:15 09/24/21 04:15 Micro: Microbiology 09/23/21 22:22 Urine Culture - Final Urine,Clean Catch A&P Assessment and plan (1) CVA (cerebral vascular accident): Appreciate physical therapy, speech therapy evaluation. Continue with aspirin and Plavix, Lipitor. Continue amlodipine and lisinopril. Blood pressure fairly well controlled. Continue Telemetry. Will need to follow-up with neurology as an outpatient within 2 weeks on discharge. Status: Acute Qualifiers: CVA mechanism: unspecified Qualified Code(s): I63.9 - Cerebral infarction, unspecified (2) UTI (urinary tract infection): UA consistent with positive leuk esterase, 3+ bacteria. Unable to confirm with patient regarding dysuria. Fan removed yesterday. Continue with ceftriaxone. Urine culture negative. Status: Acute (3) Hyperglycemia: Hemoglobin A1c normal at 5.1 Status: Acute (4) Hypertension: On lisinopril and amlodipine Currently blood pressure is at goal Status: Acute (5) COPD (chronic obstructive pulmonary disease): Continue DuoNeb every 6 hours Continue budesonide BID Status: Acute Plan History of alcohol use, continue thiamine. Continue to monitor for withdrawal, no symptoms present at this time. He reports he has not drank since Thursday. Tobacco dependency, encourage abstinence Multiple other medical problems as outlined in past medical history Full code Lovenox for DVT prophylaxis Discharge planning: Given patient social discord, significant stroke and confusion secondary to stroke patient would need placement to SNF. Since agreeable. Awaiting safe discharge planning. Attestations Medical Necessity Statement*: Awaiting safe discharge planning given significant CVA causing physical deconditioning and patient is moderate to maximum assist with physical therapy for now and is at high risk of fall adverse outcome on going home. 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
[2021-09-25] MEDS: enoxaparin 40 mg/0.4 mL Syringe SUBCUT (17:21)
[2021-09-25 17:25] LABS: Glucose Point of Care 97 mg/dL (70-110)
[2021-09-25] MEDS: acetaminophen 325 mg Tablet 650 MG PO (20:03)
[2021-09-25] MEDS: atorvastatin 40 mg Tablet PO (20:04)
[2021-09-25] MEDS: finasteride 5 mg Tablet PO (20:04)
[2021-09-25] MEDS: tamsulosin 0.4 mg Capsule PO (20:04)
[2021-09-25 20:59] LABS: Glucose Point of Care 77 mg/dL (70-110)
[2021-09-26] VITALS (7 sets, daily range): BP systolic 108–121; BP diastolic 68–81; PULSE 77–100; RESP 13–20; TEMP 36.4–37.1; O2SAT 88–97
[2021-09-26 05:58] LABS: Basophils # 0.1 10^3/uL (0.0-0.1); Basophils % 1.4 %; Eosinophils # 0.5 10^3/uL (0.0-0.8); Eosinophils % 6.6 %; Hematocrit 48.5 % (42.0-52.0); Hemoglobin 15.2 g/dL (11.7-16.6); Lymphocytes # 1.2 10^3/uL (0.8-4.8); Lymphocytes % 15.4 %; Mean Corpuscular HGB Conc 31.3 g/dL (30.0-36.0); Mean Corpuscular Hemoglobin 30.6 pg (28.0-34.0); Mean Corpuscular Volume 97.6 fl (80-94); Monocytes # 0.6 10^3/uL (0.2-0.9); Neutrophils # 5.45 10^3/uL (1.8-7.7); Neutrophils % 67.7 %; Nucleated Red Blood Cells % 0 %; Platelet Count 387 10^3/cmm (130-400); Red Blood Count 4.97 10^6/uL (4.1-5.3); Red Cell Distribution Width 11.6 % (12.1-15.1)
[2021-09-26 06:15] LABS: Alanine Aminotransferase 28 U/L (0-41); Albumin Level 3.6 g/dL (3.5-5.2); Alkaline Phosphatase 86 IU/L (40-130); Anion Gap 16.9 (5-19); Aspartate Amino Transferase 20 U/L (0-40); Blood Urea Nitrogen 40 mg/dL (8-23); Calcium 9.3 mg/dL (8.5-10.5); Carbon Dioxide 20 mmol/L (22-29); Chloride 103 mmol/L (98-107); Globulin 2.9 g/dL (1.3-4.6); Glucose 84 mg/dL (65-115); Osmolality Calculated 291 mOsm/kg (285-295); Potassium 3.9 mmol/L (3.5-5.1); Sodium 136 mmol/L (136-145); Total Bilirubin 0.4 mg/dL (0.15-1.2); Total Protein 6.5 g/dL (6.6-8.7)
[2021-09-26 06:20] LABS: Glucose Point of Care 82 mg/dL (70-110)
[2021-09-26] MEDS: aspirin 81 mg EC Tablet PO (08:24)
[2021-09-26] MEDS: lisinopril 20 mg Tablet 40 MG PO (08:24)
[2021-09-26] MEDS: famotidine 20 mg Tablet PO ×2 (08:24→17:31)
[2021-09-26] MEDS: nicotine 21 mg Patch 1 PATCH TRANSDERMA (08:24)
[2021-09-26] MEDS: clopidogrel 75 mg Tablet PO (08:24)
[2021-09-26] MEDS: thiamine 100 mg Tablet PO (08:24)
[2021-09-26] MEDS: amlodipine 5 mg Tablet 10 MG PO (08:24)
[2021-09-26] MEDS: cefTRIAXone 1,000 MG in sodium chloride 0.9% (plus) 50 ML 100 MG IV (11:18)
[2021-09-26 11:43] LABS: Glucose Point of Care 83 mg/dL (70-110)
--- NOTE | 2021-09-26 12:22 | P.PN_ITS ---
Subjective Subjective: No acute events overnight. Denies any nausea vomiting, headache. Status quo. Sleeping on examination, wakes up to verbal cue. Has remained hemodynamically stable and afebrile. Vitals/I&O/Wt Last Vital Signs Temp 97.6 F 09/26/21 10:56 Pulse 87 09/26/21 10:56 Resp 13 09/26/21 10:56 BP 108/72 09/26/21 10:56 Pulse Ox 88 L 09/26/21 10:56 09/25/21 09/26/21 09/26/21 22:59 06:59 14:59 Intake Total 360 / 650 440 / 1090 50 / 50 Balance 360 / 650 440 / 1090 50 / 50 Physical Exam Narrative: General: No acute distress, AO x3, slurred speech unchanged from before HEENT: Normocephalic, atraumatic. Neck supple, nontender, no lympadenopathy, no thyromegaly. Cardiac: Regular rate and rhythm. S1 S2 present. No murmurs rubs or gallops noted. Peripheral pulse 2+. Respiratory: Wheezing noted in all lobes, intermittent rhonchi. No rales. GI: Soft, nontender, nondistended, normoactive bowel sounds, no organomegaly appreciated. Neuro: Dense right sided hemiparesis. No facial droop. Speech continues to be muffled. Urinary Catheter Management: Fan: Cath Placed During This Visit: yes Reason for Continuing Indwelling Catheter: Acute Urinary Retention or Obstruction Urinary Catheter Date of Insertion: 09/22/21 Urinary Catheter Time of Insertion: 23:00 Data : 09/26/21 04:30 09/26/21 04:30 Micro: Microbiology 09/23/21 22:22 Urine Culture - Final Urine,Clean Catch A&P Assessment and plan (1) CVA (cerebral vascular accident): Appreciate physical therapy, speech therapy evaluation. Continue with aspirin and Plavix, Lipitor. Continue amlodipine and lisinopril. Blood pressure fairly well controlled. Continue Telemetry. Repeat CT head. Check chest x-ray to rule out aspiration. Continue with dysphagia level 2 diet. Will need to follow-up with neurology as an outpatient within 2 weeks on discharge. Status: Acute Qualifiers: CVA mechanism: unspecified Qualified Code(s): I63.9 - Cerebral infarct ion, unspecified (2) UTI (urinary tract infection): UA consistent with positive leuk esterase, 3+ bacteria. Unable to confirm with patient regarding dysuria. Fan removed yesterday. Continue with ceftriaxone. Will finish a 3 to 5-day course. Urine culture negative. Status: Acute (3) Hyperglycemia: Hemoglobin A1c normal at 5.1 Status: Acute (4) Hypertension: On lisinopril and amlodipine Currently blood pressure is at goal Status: Acute (5) COPD (chronic obstructive pulmonary disease): Continue DuoNeb every 6 hours Continue budesonide BID Status: Acute Plan History of alcohol use, continue thiamine. Continue to monitor for withdrawal, no symptoms present at this time. He reports he has not drank since Friday 09/15. Tobacco dependency, encourage abstinence Multiple other medical problems as outlined in past medical history Full code Lovenox for DVT prophylaxis Discharge planning: Given patient social discord, significant stroke and confusion secondary to stroke patient would need placement to SNF. Since agreeable. Awaiting safe discharge planning. Attestations Medical Necessity Statement*: Awaiting safe discharge planning in setting of CVA leading to physical deconditioning as patient is at high risk of fall if he goes home by himself Time Spent in Patient Care: Greater than 35 minutes Coding Level of Care Code Acute Network Intelligence Analyst for [facility] Anderson Diagnoses CVA (cerebral vascular accident) I63.9 CVA mechanism: unspecified UTI (urinary tract infection) N39.0 Hyperglycemia R73.9 Hypertension I10 COPD (chronic obstructive pulmonary disease) J44.9
--- NOTE | 2021-09-26 12:25 | XR_ITS ---
WS: [id number] Portable AP upright chest, 09/26/2021 Clinical Data: recent stroke, ? aspiration Comparison: Portable chest, 09/18/2021. Findings: No nodules or masses are seen. There is a small right pleural effusion. The heart is normal . The pulmonary vascularity is not increased. No pneumonia or pneumothorax is seen. The aortic arch a nd descending thoracic aorta show tortuosity. XR/XR chest 1V portable [id number] Impression: 1. Small right pleural effusion. 2. Atherosclerosis.
--- NOTE | 2021-09-26 12:28 | CT_ITS ---
WS: [id number] CT HEAD NONCONTRAST HISTORY: Post stroke, confusion TECHNIQUE: Contiguous axial imaging performed through the brain in 2.5 mm imaging. Bone and soft tiss ue windows. Sagittal and coronal reformats reviewed. All CT scans at [facility] use at least one of these dose optimization techniques: automated exposure control; mA and/or kV adjustment per pa tient size (includes targeted exams where dose is matched to clinical indication); or iterative recon struction. DLP: 2021.22 mGy.cm COMPARISON: 09/18/2021 No acute intracranial hemorrhage, midline shift or mass effect. Mild atrophy and moderate chronic ischemic type changes. Low-attenuation from prior lacunar infarct i n the posterior limb of the LEFT internal capsule. Ventricles: Ventricles and extra-axial spaces are prominent on the basis of atrophy. No inferior displacement of cerebellar tonsils. Paranasal sinuses: Mucous retention cyst or polyp in the LEFT maxillary sinus. No air-fluid levels. Mastoid air cells: Well pneumatized. Calvarium and scalp: Skull is intact with no soft tissue edema or swelling. CT/CT head wo con* [id number] IMPRESSION: 1. No acute intracranial hemorrhage or edema. 2. Mild atrophy with moderate chronic microvascular ischemic disease and remot e lacunar infarct in the posterior LEFT internal capsule.
[2021-09-26] MEDS: enoxaparin 40 mg/0.4 mL Syringe SUBCUT (14:25)
[2021-09-26 16:09] LABS: Glucose Point of Care 102 mg/dL (70-110)
[2021-09-26] MEDS: tamsulosin 0.4 mg Capsule PO (20:21)
[2021-09-26] MEDS: finasteride 5 mg Tablet PO (20:21)
[2021-09-26] MEDS: atorvastatin 40 mg Tablet PO (20:21)
[2021-09-26 21:07] LABS: Glucose Point of Care 107 mg/dL (70-110)
[2021-09-27] VITALS (9 sets, daily range): BP systolic 127–151; BP diastolic 70–81; PULSE 74–109; RESP 16–24; TEMP 36.6–37; O2SAT 91–95
[2021-09-27 06:42] LABS: Glucose Point of Care 87 mg/dL (70-110)
[2021-09-27] MEDS: lisinopril 20 mg Tablet 40 MG PO (07:55)
[2021-09-27] MEDS: thiamine 100 mg Tablet PO (07:55)
[2021-09-27] MEDS: nicotine 21 mg Patch 1 PATCH TRANSDERMA (07:55)
[2021-09-27] MEDS: famotidine 20 mg Tablet PO (07:56)
[2021-09-27] MEDS: clopidogrel 75 mg Tablet PO (07:56)
[2021-09-27] MEDS: amlodipine 5 mg Tablet 10 MG PO (07:56)
[2021-09-27] MEDS: aspirin 81 mg EC Tablet PO (07:56)
[2021-09-27 11:20] LABS: Glucose Point of Care 90 mg/dL (70-110)
[2021-09-27] MEDS: cefTRIAXone 1,000 MG in sodium chloride 0.9% (plus) 50 ML 100 MG IV (11:41)
--- NOTE | 2021-09-27 12:17 | PC.SOCIAL ---
IMM Updated Updated pt on IMM. No questions voiced. Provided pt a copy. Initialed, dated, & timed copy in chart.
--- NOTE | 2021-09-27 12:38 | PM.DCS ---
Discharge Providers Date of Admission: 09/18/21 14:03 Date of Discharge: September 27, 2021 Attending Provider at Admission: Philip Ferrer MD Attending Provider at Discharge: Eduardo Mckoy MD Primary Care Provider: Ginette Ji MD Diagnoses at Discharge Discharge Diagnosis (1) CVA (cerebral vascular accident): Status: Acute Qualifiers: CVA mechanism: unspecified Qualified Code(s): I63.9 - Cerebral infarction, unspecified (2) UTI (urinary tract infection): Status: Acute (3) Hyperglycemia: Status: Acute (4) Hypertension: Status: Acute (5) COPD (chronic obstructive pulmonary disease): Status: Acute Reason for Visit Reason for Visit: generalized weakness/ possible stroke Hospital Course Hospital Course Mukund Mitchell is a 75 year old male who presents today for a 3 days history of right upper and lower extremity weakness. Patient explains that he got up out of his recliner and was unable to stand due to weakness and fell to the floor.? He explains that he was on the ground for about 30 minutes before a friend came and helped him him up. He was unable to explain why he presented to the emergency room today and not on Thursday.? Denies any nausea vomiting and fevers or chills.? Denies any dysphagia or dysarthria.? He has not had any drooling.? Denies any syncopal episodes, denies any chest pain or heart palpitations.? No prior history of CVA.? He received aspirin and a dose of labetalol in the emergency department. Patient admitted to the hospital further evaluation and management of CVA. Multiple brain imagings were done. Patient worked appropriately with physical therapy, Occupational Therapy and speech therapy. Diet was changed as per speech evaluation to prevent aspiration. During hospitalization patient was found to have a UTI for which he was given a full course of antibiotics. He is to discharge on Levaquin for 3 days to finish a course of antibiotics. Safe discharge planning were discussed with patient and patient's caregiver given physical deconditioning and debilitation secondary to stroke, social discharge and high chance of readmission, fall secondary debilitation from current stroke patient is was agreeable for SNF placement. He is been discharged in imminently stable condition to SNF. Physical Exam Narrative: General: No acute distress, AO x3, slurred speech unchanged from before HEENT: Normocephalic, atraumatic. Neck supple, nontender, no lympadenopathy, no thyromegaly. Cardiac: Regular rate and rhythm. S1 S2 present. No murmurs rubs or gallops noted. Peripheral pulse 2+. Respiratory: Wheezing noted in all lobes, intermittent rhonchi. No rales. GI: Soft, nontender, nondistended, normoactive bowel sounds, no organomegaly appreciated. Neuro: Dense right sided hemiparesis. No facial droop. Speech continues to be muffled. Urinary Catheter Management: Fan: Cath Placed During This Visit: yes Reason for Continuing Indwelling Catheter: Acute Urinary Retention or Obstruction Urinary Catheter Date of Insertion: 09/22/21 Urinary Catheter Time of Insertion: 23:00 Discharge Data Studies Completed and Pending Completed Studies During Hospitalization Category Date Time Status CT head wo con* [id number] Routine Cat Scan 09/26/21 12:[address] head wo con* [id number] Stat Cat Scan 09/18/21 07:09 Completed XR chest 1V portable [id number] Routine Exams 09/26/21 12:25 Completed XR chest 1V portable [id number] Stat Exams 09/18/21 07:08 Completed CV carotid duplex BI* [id number] Routine Ultrasound 09/19/21 09:03 Completed CV. echo complete* [id number] Routine Ultrasound 09/19/21 09:03 Completed Pending at discharge Category Date Time Status COVID [SARS Covid-2 Antigen] Stat Lab 09/27/21 12:20 Uncollected Radiology Impressions Chest X-Ray 09/26/21 12:25 Impression: 1. Small right pleural effusion. 2. Atherosclerosis. Head CT 09/26/21 12:28 IMPRESSION: 1. No acute intracranial hemorrhage or edema. 2. Mild atrophy with moderate chronic microvascular ischemic disease and remote lacunar infarct in the posterior LEFT internal capsule. Laboratory Results WBC 8.0 10^3/uL (4.0-10.0) 09/26/21 04:30 RBC 4.97 10^6/uL (4.1-5.3) 09/26/21 04:30 Hgb 15.2 g/dL (11.7-16.6) 09/26/21 04:30 Hct 48.5 % (42.0-52.0) 09/26/21 04:30 MCV 97.6 fl (80-94) H 09/26/21 04:30 MCH 30.6 pg (28.0-34.0) 09/26/21 04:30 MCHC 31.3 g/dL (30.0-36.0) 09/26/21 04:30 RDW 11.6 % (12.1-15.1) L 09/26/21 04:30 Plt Count 387 10^3/cmm (130-400) 09/26/21 04:30 MPV 10.0 fL (7.4-10.4) 09/26/21 04:30 Neut % (Auto) 67.7 % 09/26/21 04:30 Lymph % (Auto) 15.4 % 09/26/21 04:30 [place] % (Auto) 8.0 % 09/26/21 04:30 Eos % (Auto) 6.6 % 09/26/21 04:30 Baso % (Auto) 1.4 % 09/26/21 04:30 Neut # (Auto) 5.45 10^3/uL (1.8-7.7) 09/26/21 04:30 Lymph # (Auto) 1.2 10^3/uL (0.8-4.8) 09/26/21 04:30 [place] # (Auto) 0.6 10^3/uL (0.2-0.9) 09/26/21 04:30 Eos # (Auto) 0.5 10^3/uL (0.0-0.8) 09/26/21 04:30 Baso # (Auto) 0.1 10^3/uL (0.0-0.1) 09/26/21 04:30 Nucleated RBC % (auto) 0 % 09/26/21 04:30 Nucleated RBCs # 0.0 /100WBC 09/26/21 04:30 PT 13.30 SECONDS (12.1-14.9) 09/18/21 06:55 INR 0.98 (0.8-1.2) 09/18/21 06:55 APTT 38.3 SECONDS (23.9-36.7) H 09/18/21 06:55 Sodium 136 mmol/L (136-145) 09/26/21 04:30 Potassium 3.9 mmol/L (3.5-5.1) 09/26/21 04:30 Chloride 103 mmol/L (98-107) 09/26/21 04:30 Carbon Dioxide 20 mmol/L (22-29) L 09/26/21 04:30 Anion Gap 16.9 (5-19) 09/26/21 04:30 BUN 40 mg/dL (8-23) H 09/26/21 04:30 Creatinine 0.9 mg/dL (0.7-1.2) 09/26/21 04:30 GFR Calculation Not Reportable 09/26/21 04:30 Glucose 84 mg/dL (65-115) 09/26/21 04:30 POC Glucose 90 mg/dL (70-110) 09/27/21 11:03 Estimat Average Glucose 100 09/18/21 06:55 Hemoglobin A1c 5.1 % (4.0-6.0) 09/18/21 06:55 Calculated Osmolality 291 mOsm/kg (285-295) 09/26/21 04:30 Calcium 9.3 mg/dL (8.5-10.5) 09/26/21 04:30 Total Bilirubin 0.4 mg/dL (0.15-1.2) 09/26/21 04:30 AST 20 U/L (0-40) 09/26/21 04:30 ALT 28 U/L (0-41) 09/26/21 04:30 Alkaline Phosphatase 86 IU/L (40-130) 09/26/21 04:30 Creatine Kinase 104 U/L (39-308) 09/18/21 06:55 Total Protein 6.5 g/dL (6.6-8.7) L 09/26/21 04:30 Albumin 3.6 g/dL (3.5-5.2) 09/26/21 04:30 Globulin 2.9 g/dL (1.3-4.6) 09/26/21 04:30 Triglycerides 79 mg/dL (0-150) 09/19/21 05:33 Cholesterol 161 mg/dL (0-200) 09/19/21 05:33 LDL Cholesterol, Calc 84 mg/dL (50-129) 09/19/21 05:33 HDL Cholesterol 61 mg/dL (60-100) 09/19/21 05:33 LDL/HDL Ratio 1.38 RATIO (0.00-3.22) 09/19/21 05:33 Cholesterol/HDL Ratio 2.64 mg/dL (1.0-5.00) 09/19/21 05:33 TSH 1.53 uIU/mL (0.27-4.20) 09/18/21 06:55 Urine Color Yellow (Yellow) 09/23/21 22:22 Urine Appearance Cloudy (CLEAR) 09/23/21 22:22 Urine pH 5 (5-7) 09/23/21 22:22 Ur Specific [place] 1.025 (1.005-1.030) 09/23/21 22:22 Urine Protein 1+ (Negative) H 09/23/21 22:22 Urine Glucose (UA) Norm (Normal) 09/23/21 22:22 Urine Ketones Negative (Negative) 09/23/21 22: Urine Blood 3+ (Negative) H 09/23/21 22:22 Urine Nitrate Negative (Negative) 09/23/21 22:22 Urine Bilirubin 1+ (Negative) H 09/23/21 22:22 Urine Urobilinogen 1 mg/dL (Negative) H 09/23/21 22:22 Ur Leukocyte Esterase 2+ (Negative) H 09/23/21 22:22 Urine RBC >100 /hpf (0-2) H 09/23/21 22:22 Urine WBC >100 /hpf (0-5) H 09/23/21 22:22 Ur Squamous Epith Cells 5-10 /hpf (0-5) H 09/23/21 22:22 Amorphous Sediment Not Reportable 09/23/21 22:22 Urine Bacteria 3+ /hpf (NONE) H 09/23/21 22:22 Urine Mucus 2+ /hpf 09/23/21 22:22 Vitals Last Vital Signs Temp 98.4 F 09/27/21 12:00 Pulse 74 09/27/21 12:00 Resp 16 09/27/21 12:00 BP 146/81 09/27/21 12:00 Pulse Ox 94 09/27/21 12:00 Discharge Plan Discharge Patient Disposition: Xfer [facility] Condition: Stable Prescriptions: New atorvastatin 40 mg Tablet 40 mg PO BEDTIME Qty: 30 0RF clopidogrel 75 mg Tablet 75 mg PO DAILY Qty: 30 0RF amlodipine 5 mg Tablet 10 mg PO DAILY 30 Days Qty: 30 0RF aspirin 81 mg Tablet,Delayed Release (Dr/Ec) 81 mg PO DAILY Qty: 30 0RF famotidine 20 mg Tablet 20 mg PO BID Qty: 60 0RF thiamine mononitrate (vit B1) [Vitamin B-1 (mononitrate)] 100 mg Tablet 100 mg PO DAILY Qty: 30 0RF levofloxacin 500 mg tablet 500 mg PO Q24H 3 Days Qty: 3 0RF Continued ketoconazole 2 % shampoo 1 applic topical .2 x weekly Qty: 120 3RF Rx Instructions: Lather into scalp 2 times weekly. Allow to sit on scalp for 5 minutes before rinsing. multivitamin Tablet 1 tab PO DAILY 0RF Flomax 0.4 mg Capsule 0.4 mg PO BEDTIME 0RF lisinopril 40 mg Tablet 40 mg PO DAILY 0RF Proscar 5 mg Tablet 5 mg PO BEDTIME 0RF ipratropium-albuterol 20-100 mcg/actuation Mist 1 puff INHALATION QID PRN (Reason: breathing) 0RF Rx Instructions: space evenly during waking hours triamcinolone acetonide 0.1 % ointment See Rx Instructions .ROUTE .COMPLEX 0RF Rx Instructions: apply topically To itchy areas on legs bid x 2 weeks prn alt. with clobetasol clobetasol 0.05 % ointment See Rx Instructions .ROUTE .COMPLEX 0RF Rx Instructions: Apply to affected areas on legs bid x 2 wks alternating with triamcinolone ketoconazole 2 % cream See Rx Instructions .ROUTE .COMPLEX 0RF Rx Instructions: apply topically to red, scaly areas on face bid x 3 weeks then once daily Discontinued amlodipine 5 mg Tablet 5 mg PO DAILY 0RF Discharge Orders: Discharge Order (Routine); Ordered 09/27/21 Ordered By: Eduardo Mckoy Referrals: [facility] [Outside] Ginette Ji MD [Primary Care Provider] - 2 weeks Luis Antonio Iniguez [Referring] - Discharge Diet: As Directed Discharge Activity: Resume usual activity and Increase activity as tolerated Patient Instructions: Opioid Safety Activity Restrictions/Additional Instructions: Dysphagia level 2 diet. Continue taking Levaquin for 3 more days to finish the course of antibiotics for UTI. Continue with physical therapy and increase activities as possible. Discharge Attestations Time Spent in Discharge Care*: greater than 30 min Specific Discharge Activities: educating patient, discussing with pcp/other providers, discussing with case coordinator/social workers/dc planners, documenting/other paperwork and evaluating patient/reviewing data Status at Discharge: Cognitive status at discharge: mildly impaired cognition, Behavioral status at discharge: cooperative, Functional status at discharge: other assisted ambulation, Overall status at discharge: patient has a new baseline Quality Metrics Clinical Quality Measures [ No reported AMI, CVA or VTE this stay] Coding Level of Care Code Acute Chg FW DC note History Comprehensive Exam Comprehensive Medical Decision Making High Complexity Diagnoses CVA (cerebral vascular accident) I63.9 CVA mechanism: unspecified UTI (urinary tract infection) N39.0 Hyperglycemia R73.9 Hypertension I10 COPD (chronic obstructive pulmonary disease) J44.9
[2021-09-27 14:32] LABS: SARS Covid-2 Antigen Negative (Negative)
--- NOTE | 2021-09-27 14:52 | PC.NURSE ---
Report called Amy Moralez at this time. CM updated of report called.
--- NOTE | 2021-09-27 16:30 | PC.NURSE ---
Patient left facility at this time with [facility]. Wallet from [employer] given back to patient at this time.
== END 2021-09-27 16:29 | disposition skilled nursing facility (03) | DRG 65 ==
LOC: ER 10:18 → MEDSURG 13:37
PROVIDERS: Internal Medicine; Admitting Provider Internal Medicine; Emergency Provider Family Medicine; PCP Family Medicine; Visit Provider Student in an Organized Health Care Education/Training Program
DX: I63.512 Cerebral infarction due to unspecified occlusion or stenosis of left middle cerebral artery (principal); G81.91 Hemiplegia, unspecified affecting right dominant side; F05 Delirium due to known physiological condition; N39.0 Urinary tract infection, site not specified; R47.1 Dysarthria and anarthria; R29.707 NIHSS score 7; I10 Essential (primary) hypertension; F17.210 Nicotine dependence, cigarettes, uncomplicated; I16.0 Hypertensive urgency; R73.9 Hyperglycemia, unspecified; J44.9 Chronic obstructive pulmonary disease, unspecified; F10.10 Alcohol abuse, uncomplicated; R33.9 Retention of urine, unspecified
CPT/HCPCS: 36415; 36416; 51702; 51798; 70450; 71045; 80048; 80053; 80061; 81001; 82550; 82962; 83036; 84443; 85025; 85610; 85730; 87086; 87426; 92507; 92523; 92526; 92610; 93005; 93306; 93880; 94640; 96372; 96374; 96375; 97110; 97161; 97167; 97530; 97535; 99285; J0360; J0696; J1650; J2060; J3490; J7030; J7626